=== PATIENT | male | born 1975 ===

== ENCOUNTER 2016-11-09 21:21 | Inpatient (IN) ==
--- NOTE | 2016-11-09 22:45 | Emergency Department Note ---
Héctor Marvin Brittany, am scribing for, and in the presence of, Chalo Torres MD 22:43. Melissa Marvin Charles R, MD, personally performed the services described in this documentation, ascribed by Abby Anaya in my presence, and it is both accurate and complete 245 . Arrival - Arrival Chief Complaint: Extremity Problem ED Nursing Triage Note: C/C stepped on a stick about 2 weeks ago. Has infected right foot. Pt transfered from [facility] ER for further treatment of gangrene right foot. Pt was given 1g Vancomycin, 4mg Morphine, 10 units Insulin at [facility] ER. Mode of Arrival: Stretcher Limitations: No Limitations Source: Patient, RN Notes Reviewed Time Seen by Provider: 11/09/16 22:19 - History of Present Illness HPI Narrative: Patient is a 41 y/o [place] male presenting to the ED by EMS from [facility] for further evaluation of Gangrenous Right Foot. Patient presented to [facility] ER initially for medical attention with nonhealing wound. Patient reports that about two weeks ago he stepped on a stick, resulting in the wound to his right foot that has now gotten gangrenous s/p attempt to care for this at home. Patient does complain of pain to the RLE. While at [facility] ER patient was given 1g Vancomycin, 4mg Morphine, and 10 units of Insulin. He has no other complaint/pain. Allergies/Adverse Reactions: Allergies Allergy/AdvReac Type Severity Reaction Status Date / Time No Known Allergies Allergy Unverified 11/09/16 21:40 Review of System - Review of System 12 point system: reviewed and no additional remarkable complaints except as stated - Review of System Constitutional: Absent: chills, fever Eyes: Absent: vision change Head/Ears/Nose/Throat: Absent: nasal drainage, sore throat Respiratory: Absent: respiratory distress Cardiovascular: Absent: chest pain, palpitations Gastrointestinal: Absent: abdominal pain, nausea, vomiting, diarrhea, constipation Genitourinary male: Absent: urgency, dysuria, frequency Musculoskeletal: Present: as per HPI, leg pain. Absent: arm pain, back pain, neck pain Skin: Present: as per HPI. Absent: rash Neurological: Absent: headache Psychiatric: Absent: anxiety, depression Hematological/Lymphatic: Absent: easy bleeding, easy bruising Medical,Surgical,& Family Hx - Medical History Cardio: History of: Hypertension Endocrine: History of: Diabetes Mellitus (NIDDM) (noncomplaint) - Surgical History Abdominal Surgeries: Surgical HX of: Abdominal Surgery - Social History Smoking Status: Never smoker Frequency of Alcohol Use: None Type of Drug Use: None Exam Vital Signs: Vital Signs Temperature 97.4 F L 11/09/16 21:23 Pulse Rate 110 H 11/09/16 21:23 Respiratory Rate 18 11/09/16 21:23 Blood Pressure 185/103 11/09/16 21:23 O2 Sat by Pulse Oximetry 100 11/09/16 21:23 - General General appearance: alert, in no apparent distress - Head Head exam: Present: atraumatic, normocephalic, normal inspection - Eye Eye exam: Present: normal appearance, PERRL, EOMI - ENT ENT exam: Present: normal exam, normal oropharynx - Neck Neck exam: Present: normal inspection, full ROM, trachea midline - Chest Chest inspection: Present: normal inspection, symmetric chest wall rise - Respiratory Respiratory exam: Present: normal lung sounds bilaterally. Absent: rales, rhonchi, wheezes - Cardiovascular Cardiovascular exam: Present: regular rate, normal rhythm, normal heart sounds. Absent: murmur, rubs, gallop - Abdominal Exam Abdominal exam: Present: soft, normal bowel sounds. Absent: distention, tenderness - Extremities Exam Extremities exam: Present: full ROM, tenderness (right foot). Absent: normal inspection (gangrenous, necrotic tissue with puffiness involving all but the great toe with gasseous changes) - Back Exam Back exam: Present: normal inspection - Neurological Exam Neurological exam: Present: alert, oriented X3, CN II-XII intact. Absent: motor sensory deficit - Psychiatric Psychiatric exam: Present: normal affect, normal mood - Skin Skin exam: Present: warm, dry. Absent: intact (gangrenous, necrotic tissue with puffiness involving all but the great toe with gasseous changes) Course - Consultations Consultation #1: Dr. Gimenez aware patient he will see him in consult for surgery for right foot diabetic ulcer gangrene Time: 22:40 Consultation #2: Hospitalist will admit patient Time: 22:44 Disposition Clinical Impression: Osteomyelitis of right foot, Diabetic ulcer of right foot, Gas gangrene right foot, Uncontrolled diabetes mellitus, Hyperglycemia, Medical non-compliance, Renal insufficiency Case discussed with: patient, patient's family Disposition: Still a Patient Condition: Guarded Time of Disposition: 22:45
[2016-11-09] MEDS ORDERED: PIPERACILLIN/TAZOBACTAM 3,375 MG in SODIUM CHLORIDE 0.9% 100 ML IV STA (22:46)
[2016-11-09] MEDS ORDERED: DEXTROSE 50% 25 GM/50 ML VIAL IV PRN (22:51)
[2016-11-09] MEDS ORDERED: GLUCAGON 1 MG VIAL IM PRN (22:51)
--- NOTE | 2016-11-09 22:59 | XRay Report ---
Referring Physician: Chalo Torres Exam: XR chest 1V portable Date: November 09, 2016 at 10:47 PM Reason: Preoperative respiratory evaluation Comparison: Chest x-ray portable October 28, 2012 Findings: The cardiac silhouette is normal in size for the portable technique. There are minimal bibasilar opacities which are favored to represent atelectasis. No pneumothorax or pleural effusion is identified. No acute osseous process is seen. Impression: Minimal bibasilar opacities are present and are favored to represent atelectasis. PROCEDURE INTERPRETED AT [facility] DEPARTMENT OF RADIOLOGY Final Report Signed by: Dr. Pebbles Fisher
[2016-11-09] MEDS ORDERED: MORPHINE 2 MG/1 ML SYRINGE IV STA (23:13)
--- NOTE | 2016-11-09 23:18 | Hospitalist History & Physical ---
Assessment and Plan (1) Gas gangrene Status: Acute Current Visit: Yes (2) Diabetic ulcer of right foot Status: Acute Current Visit: Yes (3) Hyperglycemia Status: Acute Current Visit: Yes (4) Medical non-compliance Status: Acute Current Visit: Yes (5) Osteomyelitis of right foot Status: Acute Current Visit: Yes (6) Renal insufficiency Status: Acute Current Visit: Yes (7) Uncontrolled diabetes mellitus Status: Acute Assessment and plan: Our plan for this patient will be admitting him to [facility] floor IV fluids and Vanco and Zosyn would be appropriate for gas gangrene. Patient will need debridement and possible amputation. Surgery will be consulted. We will also consult diabetic education to try to enforce the need for better glucose control. Gave him n.p.o. past midnight and sliding scale as needed Current Visit: Yes History of Present Illness Chief complaint: Foot wound History of present illness: Mr. Shirley is a 41 year old male with past medical history of diabetes and hypertension who reportedly stepped on a stick approximately one half weeks ago. Patient was trying to take care of at home but would not get any better. He started noticing that it was smelling. He went to [facility] today. He had a CT scan performed at the [facility]. The impression was soft tissue swelling of the foot with a large amount of air in the soft tissues. Questionable acute osteomyelitis in the fifth medial fourth metatarsal head versus poor visualization due to overlying air. Consider MRI. We accepted the patient in transfer from the [facility] I was consulted to admit the patient through the emergency room. Allergies Allergy/AdvReac Type Severity Reaction Status Date / Time No Known Allergies Allergy Unverified 11/09/16 21:40 Medical,Surgical,& Family Hx - Medical History Cardio: History of: Hypertension Endocrine: History of: Diabetes Mellitus (NIDDM) (noncomplaint) - Surgical History Abdominal Surgeries: Surgical HX of: Abdominal Surgery - Social History Smoking Status: Never smoker Frequency of Alcohol Use: None Type of Drug Use: None 12 point system: reviewed and no additional remarkable complaints except as stated Exam - Constitutional Vitals: Period Temp Pulse Resp BP Sys/Valdivia Pulse Ox Last 24 Hr 97.4 F-97.4 F 110-110 18-18 185-185/103-103 100 - General General appearance: alert, in no apparent distress - Head Head exam: Present: atraumatic, normocephalic, normal inspection - Eye Eye exam: Present: normal appearance, PERRL, EOMI - ENT ENT exam: Present: normal exam, normal oropharynx - Neck Neck exam: Present: normal inspection, full ROM, trachea midline - Chest Chest inspection: Present: normal inspection, symmetric chest wall rise - Respiratory Respiratory exam: Present: normal lung sounds bilaterally - Cardiovascular Cardiovascular exam: Present: regular rate, normal rhythm, normal heart sounds. - Abdominal Exam Abdominal exam: Present: soft, normal bowel sounds. - Extremities Exam Extremities exam: Present: Gangrenous necrotic tissue involving a large amount of the sole of his right foot. - Back Exam Back exam: Present: normal inspection - Neurological Exam Neurological exam: Present: alert, oriented X3, CN II-XII intact. - Psychiatric Psychiatric exam: Present: normal affect, normal mood - Skin Skin exam: Present: warm, dry. Foot infection as described above Results - Labs Labs: Labs from outside facility displayed white count 10.3 hemoglobin 9.6 and 30.4 platelets 646 glucose 507 BUN 14 creatinine 1.4 sodium 127 potassium 4.0 chloride 92 bicarb 26.5 calcium 7.9 acetone screen negative lactic acid 2.5
[2016-11-09] MEDS ORDERED: PIPERACILLIN/TAZOBACTAM 3,375 MG VIAL IV ONE (23:26)
[2016-11-09] MEDS: SODIUM CHLORIDE 0.9% 1,000 ML IV SCH (23:33)
[2016-11-09 23:42] LABS: Basophils % 0.3 % (0.0-0.8); Eosinophils # 0.2 10*3/uL (0.0-0.87); Eosinophils % 1.3 % (0.00-10.9); Hematocrit 24.8 VOL% (42.0-52.0); Hemoglobin 8.1 GM/DL (14.0-18.0); Immature Granulocytes % 0.4 %; Immature Granulocytes Absolute 0.06 #; Lymphocytes % 13.7 % (21.2-54.2); Mean Corpuscular HGB Conc 32.7 GM/DL (32-36); Mean Corpuscular Hemoglobin 27 PG (27-34); Mean Corpuscular Volume 83.8 FL (87-102); Mean Platelet Volume 8.4 FL (9.6-12.0); Monocytes # 0.8 10*3/uL (0.11-0.8); Monocytes % 5.3 % (1.7-12.7); Neutrophils # 11.6 10*3/uL (1.4-7.4); Platelet Count 530 T/CUMM (130-400); Red Blood Count 2.96 MC/CUMM (3.8-5.5); Red Cell Distribution Width 12.9 % (9.3-17.3); White Blood Count 14.7 T/CUMM (4-12)
[2016-11-10 00:03] LABS: Alanine Aminotransferase 12 U/L (16-61); Albumin 1.4 G/DL (3.4-5.0); Alkaline Phosphatase 146 U/L (45-117); Aspartate Amino Transferase 10 U/L (0-37); Bilirubin,Total < 0.39 MG/DL (0.2-1.0); Blood Urea Nitrogen 11 MG/DL (7-18); Calcium 7.5 MG/DL (8.5-10.1); Glucose 291 MG/DL (74-106); Magnesium 1.5 MG/DL (1.8-2.4); Osmolality,Calculated 271.7 MOS/KG (273-304); Potassium 3.9 MMOL/L (3.5-5.1); Sodium 131 MMOL/L (136-145); Total Protein 6.8 G/DL (6.4-8.3)
[2016-11-10] MEDS ORDERED: VANCOMYCIN INJ 1,000 MG in SODIUM CHLORIDE 0.9% 250 ML IV ONE (01:00)
[2016-11-10] MEDS ORDERED: MAGNESIUM SULF RIDER 2 GM in PREMIX 1 EACH IV ONE (02:34)
[2016-11-10] MEDS: VANCOMYCIN INJ 1,500 MG in SODIUM CHLORIDE 0.9% 500 ML IV SCH ×3 (03:50→20:52)
[2016-11-10] MEDS: MORPHINE 2 MG/1 ML SYRINGE IV PRN ×3 (04:07→20:45)
[2016-11-10] MEDS: INSULIN REGULAR 100 UNIT/ML SUBCUT SCH ×5 (04:56→20:53)
[2016-11-10] MEDS ORDERED: INSULIN REGULAR 100 UNIT/ML SUBCUT ONE (05:01)
[2016-11-10 05:56] LABS: Basophils # 0.1 10*3/uL (0.0-0.2); Basophils % 0.4 % (0.0-0.8); Eosinophils # 0.6 10*3/uL (0.0-0.87); Eosinophils % 4.4 % (0.00-10.9); Hematocrit 23.4 VOL% (42.0-52.0); Hemoglobin 7.6 GM/DL (14.0-18.0); Immature Granulocytes % 0.5 %; Immature Granulocytes Absolute 0.07 #; Lymphocytes % 15.2 % (21.2-54.2); Mean Corpuscular HGB Conc 32.5 GM/DL (32-36); Mean Corpuscular Hemoglobin 27 PG (27-34); Mean Corpuscular Volume 84.5 FL (87-102); Mean Platelet Volume 8.4 FL (9.6-12.0); Monocytes # 0.7 10*3/uL (0.11-0.8); Monocytes % 5.3 % (1.7-12.7); Neutrophils # 9.6 10*3/uL (1.4-7.4); Neutrophils % 74.2 % (38.7-73.9); Platelet Count 526 T/CUMM (130-400); Red Blood Count 2.77 MC/CUMM (3.8-5.5)
[2016-11-10 06:36] LABS: Calcium 7.4 MG/DL (8.5-10.1); Osmolality,Calculated 271.5 MOS/KG (273-304)
--- NOTE | 2016-11-10 07:20 | General Surgery Consult Note ---
Assessment and Plan (1) Gas gangrene Status: Acute Assessment and plan: This patient appears to have a fairly significant infection of his right foot. He has gangrene of his third through fifth toes and this is the cause of the infection. I have recommended amputation of toes 3 through 5 on the right foot with the possibility of transmetatarsal amputation discussed with the patient. We will go ahead and do this today. The patient would like to proceed. Current Visit: Yes History of Present Illness Chief complaint: Right foot pain History of present illness: Mr. Shirley is a 41 year old male admitted to the hospital on transfer from [facility] for wet gangrene of the right third through fifth toes. The patient says he has been dealing with this for many months. His lactic acid at [place] was 2.5 but it was 1 here white blood cell count is mildly elevated. Creatinine is actually normal blood glucoses are extremely elevated in the 500 range when he got here. This is improved overnight. The patient is ambulatory. Allergies Allergy/AdvReac Type Severity Reaction Status Date / Time No Known Allergies Allergy Unverified 11/09/16 21:40 Medical,Surgical,& Family Hx - Medical History Cardio: History of: Hypertension Endocrine: History of: Diabetes Mellitus (NIDDM) (noncomplaint) - Surgical History HEENT Surgeries: Surgical HX of: Tonsilectomy & Adenoidectomy (tonsilectomy) Abdominal Surgeries: Surgical HX of: Abdominal Surgery - Family History Family History: Reports;: Family Diabetes (father) - Social History Smoking Status: Never smoker Frequency of Alcohol Use: None Type of Drug Use: None - Constitutional Constitutional: Present: as per HPI - EENT Nose, mouth and throat: Present: as per HPI - Cardiovascular Cardiovascular: Present: as per HPI - Respiratory Respiratory: Present: as per HPI - Gastrointestinal Gastrointestinal: Present: as per HPI - Genitourinary Genitourinary: Present: as per HPI - Musculoskeletal Musculoskeletal: Present: as per HPI - Neurological Neurological: Present: as per HPI - Endocrine Endocrine: Present: as per HPI Hematologic/Lymphatic: Present: as per HPI Exam - Constitutional Vitals: Period Temp Pulse Resp BP Sys/Valdivia Pulse Ox Last 24 Hr 98 F-98.3 F 84-95 16-18 106-126/53-83 95-97 General appearance: no acute distress, over weight - Head Head exam: Present: normal inspection, normocephalic - Eye Eye exam: Present: EOMI. Absent: scleral icterus Pupils: Present: KIMBERLI - ENT ENT exam: Present: normal exam Mouth exam: Present: normal external inspection, normal voice - Neck Neck exam: Present: normal inspection, trachea midline - Respiratory Respiratory exam: Present: clear to auscultation bilaterally. Absent: accessory muscle use, chest wall tenderness - Cardiovascular Cardiovascular exam: Present: RRR. Absent: systolic murmur, tachycardia - GI/Abdominal GI/Abdominal exam: Present: normal bowel sounds, soft. Absent: tenderness, rebound - Extremities Exam Extremities exam: Present: other (There is wet gangrene of the third through fifth toes of the right foot. There is some erythema extending onto the forefoot. There is no skin blistering. There is foul odor to the foot.) - Neurological Exam Neurological exam: Present: alert, oriented X3 Speech: Present: normal - Skin Skin exam: Present: normal color, warm Results - Labs CBC & BMP: 11/10/16 05:17 11/10/16 05:17 - Diagnostic Findings Procedure: Chest x-ray: image reviewed by me, report reviewed by me, X-ray: report reviewed by me (Right foot x-ray with subcutaneous emphysema.)
[2016-11-10] MEDS ORDERED: LISINOPRIL/HCTZ 20-12.5 MG TABLET PO SCH (09:00)
[2016-11-10] MEDS: PANTOPRAZOLE 40 MG TABLET PO SCH (09:38)
[2016-11-10] MEDS: PIPERACILLIN/TAZOBACTAM 3,375 MG in SODIUM CHLORIDE 0.9% 100 ML IV SCH ×2 (09:39→17:07)
[2016-11-10] MEDS: SODIUM CHLORIDE 0.9% 1,000 ML IV SCH ×3 (09:39→22:01)
[2016-11-10] MEDS ORDERED: ROPIVACAINE 0.5% 30 ML VIAL ONE (11:52)
[2016-11-10] MEDS ORDERED: ONDANSETRON 4 MG/2 ML VIAL ONE (11:55)
--- NOTE | 2016-11-10 11:55 | EKG Report ---
Stationary ECG Study [facility] Test Date: 11/10/2016 11:55:35 AM Pat Name: KIRILL LEGER Department: Room: 328 Gender: M Seo Executive: CLAUDIA : 1975 Requested by: Kee Vela Order Number: [id number] Reading MD: TYRELL KLEIN Intervals [place] Rate: 90 P: 50 WI: 96 QRS: 29 QRSD: 93 T: -12 QT: 372 QTc: 420 Interpretive Statements SINUS RHYTHM WITH SHORT WI INTERVAL MODERATE VOLTAGE CRITERIA FOR LVH, CONSIDER NORMAL VARIANT INFERIOR MYOCARDIAL INFARCTION, OF INDETERMINATE AGE Electronically Signed On 11-16-16 10:44:35 CDT by TYRELL KLEIN [email or web address]
--- NOTE | 2016-11-10 12:40 | Operative Note ---
Date of procedure: 11/10/16 Pre-op diagnosis: Wet gangrene right foot Post-op diagnosis: same Procedure: Preoperative diagnosis Wet gangrene right foot Postoperative diagnosis Same Procedures performed Ray amputation of right second through fifth toes Complications None apparent Specimen Gangrenous tissue with no pus Findings Wet gangrene was present but there is no purulent fluid to culture. Healthy bleeding tissue was achieved on the resection of all necrotic tissue. Blood loss 20 mL Anesthesia Monitored with local and regional ankle block Indications Wet gangrene right foot Description of procedure The patient was taken to the operating room and transferred to the operating table in the supine position. Pressure points were padded and SCDs placed the left lower extremity. Monitored anesthesia was administered. The right foot was prepped with water-based chlorhexidine and draped sterilely. Timeout was called. The wet gangrene extended through the second toe as well as the third through fifth toes and an incision was made around the area of gangrene and all the gangrene was removed with sharp dissection. Bone cutters were used to transect the bone and it required transmetatarsal ray amputations of second through fifth toes. We did get back to healthy bleeding tissue. All the gangrenous tissue was removed and sent to the lab. There is no pus for culture. The wound was irrigated and packed with Dakin's wet-to-dry dressing. The patient was awakened from anesthesia and transferred to recovery. Postoperative plan Continue wound care and antibiotics Anesthesia: MAC Surgeon / Physician: Dean Gimenez Estimated blood loss: other (20 mL) Specimens: other (right foot gangrene) Condition: stable Disposition: PACU Results - Labs CBC & BMP: 11/10/16 05:17 11/10/16 05:17 Discharge Plan - Discharge Medications No Action Insulin Aspart [NovoLOG FlexPen] 10 unit SUBCUT BID W/MEALS Aspirin [Aspirin EC] 81 mg PO DAILY Lisinopril 20 mg PO DAILY glyBURIDE/METFORMIN 5-500 [Glucovance 5-500] 1 tablet PO BID W/MEALS - Follow Up or Referral - Forms/Instructions
[2016-11-10] MEDS ORDERED: MIDAZOLAM 2 MG/2 ML VIAL ONE (13:07)
[2016-11-10] MEDS ORDERED: fentaNYL 100 MCG/2 ML VIAL ONE (13:07)
[2016-11-10] MEDS: ONDANSETRON 4 MG/2 ML VIAL IV PRN (13:44)
--- NOTE | 2016-11-10 14:23 | Hospitalist Progress Note ---
Hospitalist: Subjective Interval history: Pt reports pain is controlled. C/O hunger. No cp or SOB. No fever. Last Bm unknown. Exam - Constitutional Vitals: Period Temp Pulse Resp BP Sys/Valdivia Pulse Ox Last 24 Hr 98 F-99.7 F 80-104 16-24 96-151/53-86 92-100 Exam: A and O x 3 RRR no M CTAB nonlabored Soft NT ,ND, +BS Warm right foot wrapped no cyanosis capillary refill around 2 sec. No c/c/e. DUMONT Results - Labs CBC & BMP: 11/10/16 05:17 11/10/16 05:17 - Impressions (1) Gas gangrene and nonhealing DM ulcer of right foot with osteomyelitis s/p Ray amputation of right 2nd-5th toes 11/10 Status: Acute Current Visit: Yes - Cont IV antibiotics (Vanc/ Zosyn). F/U wound and blood cultures. Cont local wound care. Surgery following (2) Uncontrolled DM2 with hyperglycemia Status: Acute Current Visit: Yes - DM education - Insulin. Accuchecks ac, hs. Check HgbA1c (3) Medical non-compliance Status: Acute Current Visit: Yes (4) Acute renal failure with hyponatremia likely due to dehydration- resolved Status: Acute Current Visit: Yes s/p IVF. (5) Hypomagnesemia - replaced IV. Recheck in am DVT prophylaxis D/W pt, family and nurse and all questions answered.
--- NOTE | 2016-11-10 14:41 | Anesthesia Post-Op ---
Anesthesia Post OP - Post Ansesthetic Evaluation Patient seen in post op: Yes Resp: within normal limits CV: within normal limits Mental: within normal limits Temp: within normal limits [id number]: within normal limits Nausea and Vomiting: within normal limits Pain: within normal limits
[2016-11-10] MEDS ORDERED: KETAMINE 500 MG/10 ML VIAL ONE (14:54)
--- NOTE | 2016-11-10 15:10 | Event Note ---
General Surgery Progress Note Chief complaint This patient is a 41-year-old man with diabetes admitted with wet gangrene of his right foot treated with ray amputation of right second through fifth toes on 11/10/2016 Interval history The patient is doing well. He is hungry but has no other complaints. Physical exam Afebrile with normal vital signs Right foot dressing is clean with no bleeding Labs None new Imaging None Assessment and plan Continue antibiotics and diet as tolerated Continue pain control I will change the dressing tomorrow.
[2016-11-11] MEDS: PIPERACILLIN/TAZOBACTAM 3,375 MG in SODIUM CHLORIDE 0.9% 100 ML IV SCH ×3 (00:58→18:12)
[2016-11-11] MEDS: MORPHINE 2 MG/1 ML SYRINGE IV PRN ×2 (04:08→08:25)
[2016-11-11] MEDS: VANCOMYCIN INJ 1,500 MG in SODIUM CHLORIDE 0.9% 500 ML IV SCH ×3 (05:24→20:39)
[2016-11-11 06:31] LABS: Basophils % 0.3 % (0.0-0.8); Eosinophils # 0.7 10*3/uL (0.0-0.87); Eosinophils % 5.7 % (0.00-10.9); Immature Granulocytes % 0.6 %; Immature Granulocytes Absolute 0.08 #; Lymphocytes # 1.9 10*3/uL (1.4-4.0); Lymphocytes % 14.6 % (21.2-54.2); Mean Corpuscular HGB Conc 33.3 GM/DL (32-36); Mean Corpuscular Hemoglobin 28 PG (27-34); Mean Corpuscular Volume 84.3 FL (87-102); Mean Platelet Volume 8.3 FL (9.6-12.0); Monocytes # 0.7 10*3/uL (0.11-0.8); Monocytes % 5.1 % (1.7-12.7); Neutrophils # 9.5 10*3/uL (1.4-7.4); Neutrophils % 73.7 % (38.7-73.9); Platelet Count 479 T/CUMM (130-400); Red Blood Count 2.49 MC/CUMM (3.8-5.5); Red Cell Distribution Width 13.2 % (9.3-17.3); White Blood Count 12.8 T/CUMM (4-12)
[2016-11-11 07:06] LABS: Calcium 7.1 MG/DL (8.5-10.1); Magnesium 1.6 MG/DL (1.8-2.4); Osmolality,Calculated 268.8 MOS/KG (273-304); Potassium 4.2 MMOL/L (3.5-5.1)
--- NOTE | 2016-11-11 08:16 | Event Note ---
General Surgery Progress Note Chief complaint This patient is a 41-year-old man with diabetes admitted with wet gangrene of his right foot treated with ray amputation of right second through fifth toes on 11/10/2016 Interval history The patient is doing well. He is hungry but has no other complaints. He is having some pain Physical exam Afebrile with normal vital signs Right foot wound is clean with no active bleeding but no significant further necrotic tissue Labs None new Imaging None Assessment and plan Continue antibiotics and diet as tolerated Continue pain control Continue wound care The patient will be a good candidate for [facility]. We will look into this.
[2016-11-11] MEDS: INSULIN REGULAR 100 UNIT/ML SUBCUT SCH ×4 (08:47→20:49)
[2016-11-11] MEDS: PANTOPRAZOLE 40 MG TABLET PO SCH (08:50)
[2016-11-11] MEDS: LISINOPRIL 20 MG TABLET PO SCH (08:56)
[2016-11-11] MEDS ORDERED: MAGNESIUM SULF RIDER 2 GM in PREMIX 1 EACH IV ONE (10:28)
--- NOTE | 2016-11-11 10:34 | Hospitalist Progress Note ---
Hospitalist: Subjective Interval history: C/o severe pain in foot. No cp or SOB. No fever. BS elevated. Ate well yesterday. Exam - Constitutional Vitals: Period Temp Pulse Resp BP Sys/Valdivia Pulse Ox Last 24 Hr 97.7 F-99.7 F 78-100 16-22 96-155/42-83 95-100 Exam: A and O x 3, appears to be in distress due to pain trying to eat breakfast RRR no M CTAB nonlabored Soft NT ,ND, +BS Warm right foot wound is open without drainage. granulation tissue on plantar surface noted. no cyanosis capillary refill around 2 sec. No c/c/e. DUMONT Results - Labs CBC & BMP: 11/11/16 06:22 11/11/16 06:22 Labs: wound gnr x 2 and gpc : 1 nonfermenting and 1 fermenting; ? proteus; ?gram positive - Impressions (1) Gas gangrene and nonhealing DM ulcer of right foot with osteomyelitis s/p Ray amputation of right 2nd-5th toes 11/10 Status: Acute Current Visit: Yes - Cont IV antibiotics (Vanc/ Zosyn). F/U wound and blood cultures. Cont local wound care. Surgery following (2) Uncontrolled DM2 with hyperglycemia (HgbA1c 13.6) Status: Acute Current Visit: Yes - DM education - Schedule Insulin Novolin 70/30 20U BID. Accuchecks ac, hs. (3) Acute expected blood loss anemia Status: Acute Current Visit: Yes -transfuse 2 units of PRBCs. Recheck H and H in am (4) Acute renal failure likely due to dehydration- improved. Status: Acute Current Visit: Yes s/p IVF. (5) Hypomagnesemia - replace again IV today. DVT prophylaxis D/W pt, family and nurse and charge nurse and micro dept. All questions answered.
[2016-11-11] MEDS: SODIUM CHLORIDE 0.9% 1,000 ML IV SCH (11:20)
[2016-11-11] MEDS ORDERED: SODIUM CHLORIDE 0.9% 250 ML IV PRN (12:04)
[2016-11-11] MEDS: INSULIN ASPART PROTAMINE/ASPART 70/30 100 UNIT/ML SUBCUT SCH ×2 (12:29→18:11)
[2016-11-11] MEDS: ONDANSETRON 4 MG/2 ML VIAL IV PRN (12:31)
[2016-11-12] MEDS: PIPERACILLIN/TAZOBACTAM 3,375 MG in SODIUM CHLORIDE 0.9% 100 ML IV SCH ×4 (03:13→23:55)
[2016-11-12] MEDS: SODIUM CHLORIDE 0.9% 1,000 ML IV SCH (07:04)
--- NOTE | 2016-11-12 07:15 | Event Note ---
General Surgery Progress Note Chief complaint This patient is a 41-year-old man with diabetes admitted with wet gangrene of his right foot treated with ray amputation of right second through fifth toes on 11/10/2016 Interval history The patient is doing well. Physical exam Afebrile with normal vital signs Right foot wound is clean. There is a small amount of sloughing tissue on the plantar aspect of the foot. Labs None new Imaging None Assessment and plan Continue antibiotics and diet as tolerated Continue pain control Continue wound care The patient will be a good candidate for [facility]. Hopefully he can go there. His wound care requirements are too intense for the [facility] in my opinion.
[2016-11-12] MEDS: MORPHINE 2 MG/1 ML SYRINGE IV PRN ×3 (08:12→19:10)
[2016-11-12] MEDS: INSULIN ASPART PROTAMINE/ASPART 70/30 100 UNIT/ML SUBCUT SCH ×2 (08:19→18:07)
[2016-11-12] MEDS: INSULIN REGULAR 100 UNIT/ML SUBCUT SCH ×4 (08:20→21:20)
[2016-11-12 08:21] LABS: Basophils % 0.2 % (0.0-0.8); Eosinophils # 0.7 10*3/uL (0.0-0.87); Eosinophils % 5.4 % (0.00-10.9); Hematocrit 29.2 VOL% (42.0-52.0); Immature Granulocytes % 0.7 %; Immature Granulocytes Absolute 0.09 #; Lymphocytes # 1.6 10*3/uL (1.4-4.0); Lymphocytes % 12.5 % (21.2-54.2); Mean Corpuscular HGB Conc 32.5 GM/DL (32-36); Mean Corpuscular Hemoglobin 28 PG (27-34); Mean Corpuscular Volume 84.4 FL (87-102); Monocytes # 0.7 10*3/uL (0.11-0.8); Monocytes % 5.6 % (1.7-12.7); Neutrophils # 9.7 10*3/uL (1.4-7.4); Neutrophils % 75.6 % (38.7-73.9); Platelet Count 502 T/CUMM (130-400); White Blood Count 12.9 T/CUMM (4-12)
[2016-11-12 08:27] LABS: Red Blood Count 3.46 MC/CUMM (3.8-5.5)
[2016-11-12 08:28] LABS: Hemoglobin 9.5 GM/DL (14.0-18.0)
[2016-11-12] MEDS: PANTOPRAZOLE 40 MG TABLET PO SCH (08:43)
[2016-11-12] MEDS: LISINOPRIL 20 MG TABLET PO SCH (08:43)
[2016-11-12 08:50] LABS: Albumin 1.4 G/DL (3.4-5.0); Calcium 7.7 MG/DL (8.5-10.1); Magnesium 2.2 MG/DL (1.8-2.4); Osmolality,Calculated 274.7 MOS/KG (273-304); Phosphorous 3.8 MG/DL (2.5-4.9); Potassium 4.3 MMOL/L (3.5-5.1)
[2016-11-12] MEDS ORDERED: VANCOMYCIN INJ 1,500 MG in SODIUM CHLORIDE 0.9% 500 ML IV PRN (09:00)
[2016-11-12] MEDS ORDERED: BISACODYL 5 MG TABLET PO ONE (09:59)
--- NOTE | 2016-11-12 11:42 | Hospitalist Progress Note ---
Hospitalist: Subjective Interval history: Patient reports his pain is still not controlled. He is tolerating oral intake. No bowel movements recorded. No chest pain or shortness of breath. No fever Exam - Constitutional Vitals: Period Temp Pulse Resp BP Sys/Valdivia Pulse Ox Last 24 Hr 97.4 F-99.7 F 77-100 16-20 94-150/48-83 93-95 Exam: A and O x 2, appears to be in distress due to pain. RRR no M CTAB nonlabored Soft NT ,ND, +BS Warm right foot wrapped with dressings in place an Darrel bandage. no cyanosis capillary refill around 2 sec. No c/c/e. DUMONT Results - Labs CBC & BMP: 11/12/16 08:00 11/12/16 08:00 - Impressions (1) Gas gangrene and nonhealing DM ulcer of right foot with osteomyelitis s/p Ray amputation of right 2nd-5th toes 11/10 Status: Acute Current Visit: Yes - Cont IV antibiotics (Vanc/ Zosyn). Hold Vanc until Vanc level returns. F/U wound cultures. Cont local wound care. Surgery following (2) Uncontrolled DM2 with hyperglycemia (HgbA1c 13.6) Status: Acute Current Visit: Yes - DM education - BS controlled. Cont Insulin Novolin 70/30 20U BID. Accuchecks ac, hs. (3) Acute expected blood loss anemia Status: Acute Current Visit: Yes -transfuse 2 units of PRBCs. Recheck H and H in am (4) Acute renal failure Status: Acute Current Visit: Yes s/p IVF. Recheck renal function panel now. Check a random Vanco level now. Discussed with pharmacy. (5) Hypomagnesemia - replace again IV today. DVT prophylaxis Pt has been accepted to [facility] but cultures are still pending and creatinine has jumped up. ? lab error. Repeat RFP now and check random vanc level now. D/W pharmacy.
[2016-11-12] MEDS ORDERED: VANCOMYCIN INJ 1,500 MG in SODIUM CHLORIDE 0.9% 500 ML IV ONE (12:00)
[2016-11-12 12:54] LABS: Albumin 1.3 G/DL (3.4-5.0); Calcium 7.5 MG/DL (8.5-10.1); Phosphorous 3.5 MG/DL (2.5-4.9); Potassium 4.3 MMOL/L (3.5-5.1)
[2016-11-12] MEDS ORDERED: SODIUM CHLORIDE 0.9% 1,000 ML IV SCH (16:30)
--- NOTE | 2016-11-12 17:49 | Ultrasound Report ---
Referring Physician: Philly Aleman MD Exam: US renal Bilateral Date: November 12, 2016 Reason: Elevated creatinine Comparison: None Technique: Grayscale ultrasound images of both kidneys were obtained. Ultrasound images were captured and stored. Findings: The right kidney measures 10.5 x 5.4 x 4.9 cm, and the left kidney measures 10.2 x 6.1 x 6.1 cm. No hydronephrosis or suspicious renal lesion is identified. The renal parenchyma echogenicity is unremarkable as visualized. Impression: No acute renal process is identified. PROCEDURE INTERPRETED AT [facility] DEPARTMENT OF RADIOLOGY Final Report Signed by: Dr. Pebbles Fisher
[2016-11-13 05:29] LABS: Albumin 1.3 G/DL (3.4-5.0); Calcium 7.1 MG/DL (8.5-10.1); Osmolality,Calculated 275.8 MOS/KG (273-304); Potassium 4.5 MMOL/L (3.5-5.1)
[2016-11-13 05:45] LABS: Alanine Aminotransferase < 6 U/L (16-61); Albumin 1.3 G/DL (3.4-5.0); Alkaline Phosphatase 150 U/L (45-117); Aspartate Amino Transferase 9 U/L (0-37); Bilirubin,Indirect 0.5 MG/DL (0.0-1.0); Total Protein 5.8 G/DL (6.4-8.3)
[2016-11-13] MEDS: SODIUM CHLORIDE 0.9% 1,000 ML IV SCH ×3 (06:05→17:33)
--- NOTE | 2016-11-13 06:39 | Event Note ---
General Surgery Progress Note Chief complaint This patient is a 41-year-old man with diabetes admitted with wet gangrene of his right foot treated with ray amputation of right second through fifth toes on 11/10/2016 Interval history The patient is doing well. Physical exam Afebrile with normal vital signs Right foot wound is clean. There is a small amount of sloughing tissue on the plantar aspect of the foot. It is improved from yesterday Labs None new Imaging None Assessment and plan Continue antibiotics and diet as tolerated Continue pain control Continue wound care Transfer to LTAC as soon as one is available. The wound is not ready for a wound VAC yet. Continue wet-to-dry dressing changes.
--- NOTE | 2016-11-13 07:50 | Hospitalist Progress Note ---
Hospitalist: Subjective Interval history: Patient reports his pain medication does not last long enough. No fever or chills. He is tolerating oral intake. He has had a bowel movement. No diarrhea. He says he is voiding and it is the color of Mountain Dew. Exam - Constitutional Vitals: Period Temp Pulse Resp BP Sys/Valdivia Pulse Ox Last 24 Hr 97.9 F-99.7 F 74-91 16-20 109-137/58-69 95-96 Exam: A and O x 2, appears to be in distress due to pain. RRR no M CTAB nonlabored Soft NT ,ND, +BS Warm right foot wrapped with dressings in place with an Darrel bandage. no cyanosis capillary refill around 2 sec. No c/c/e. 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 Hold Vanc due to elevated creatinine levels. F/U wound cultures. Cont local wound care. Surgery following (2) Uncontrolled DM2 with hyperglycemia (HgbA1c 13.6) Status: Acute Current Visit: Yes - DM education - BS controlled. Cont Insulin Novolin 70/30 20U BID. Accuchecks ac, hs. (3) Acute expected blood loss anemia Status: Acute Current Visit: Yes -transfuse 2 units of PRBCs. Recheck H and H in am (4) Acute renal failure likely ATN/AIN Status: Acute Current Visit: Yes - Vanc dc'd. Holding ACEi. Renal Ultrasound normal. Consult Renal. Increase IVF. Monitor I and O's. Serial labs. - Renally dose medication - Avoid nephrotoxic agents. (5) Hypomagnesemia - replaced. (6) Severe protein calorie malnutrition - nutrition consult and supplementation DVT prophylaxis Pt has been accepted to [facility] but cultures are still pending and creatinine has jumped up. It appears it may have plateaued. On IV fluids and repeat RFP. Awaiting nephrology input.
[2016-11-13] MEDS: INSULIN REGULAR 100 UNIT/ML SUBCUT SCH ×4 (08:44→21:51)
[2016-11-13] MEDS: PANTOPRAZOLE 40 MG TABLET PO SCH (08:44)
[2016-11-13] MEDS: INSULIN ASPART PROTAMINE/ASPART 70/30 100 UNIT/ML SUBCUT SCH ×2 (08:45→16:57)
[2016-11-13] MEDS: PIPERACILLIN/TAZOBACTAM 3,375 MG in SODIUM CHLORIDE 0.9% 100 ML IV SCH ×2 (08:46→16:58)
[2016-11-13] MEDS: MORPHINE 2 MG/1 ML SYRINGE IV PRN (09:37)
--- NOTE | 2016-11-13 18:28 | Nephrology Consult Note ---
History of Present Illness Chief complaint: Acute renal failure History of present illness: Mr. Shirley is a 41 year old male gentleman with a history of hypertension diabetes who is now status post amputation of the third through the fifth toe on the right. Patient had follow-up labs today that showed evidence of acute renal failure with creatinine 2.4. Nephrology is been consulted for renal issues. There is no history of hypotensive episodes in the reports. Patient has been on lisinopril in the past. There is no history of any other recent contrast studies for this patient. At present he is has good urine output voices no complaints of shortness of breath or chest pain. Renal ultrasound done today shows no evidence of hydronephrosis or obstruction. At this time recommend continue to encourage fluids by mouth. Avoid nephrotoxic agents. Daily BMP. Home Medications Medication Instructions Recorded Confirmed Type Aspirin [Aspirin EC] 81 mg PO DAILY 11/10/16 11/10/16 History Insulin Aspart [NovoLOG FlexPen] 10 unit SUBCUT BID W/MEALS 11/10/16 11/10/16 History Lisinopril 20 mg PO DAILY 11/10/16 11/10/16 History glyBURIDE/METFORMIN 5-500 1 tablet PO BID W/MEALS 11/10/16 11/10/16 History [Glucovance 5-500] Allergies Allergy/AdvReac Type Severity Reaction Status Date / Time No Known Allergies Allergy Unverified 11/09/16 21:40 Medical,Surgical,& Family Hx - Medical History Cardio: History of: Hypertension Neurology: No history of: Seizures Endocrine: History of: Diabetes Mellitus (NIDDM) (noncomplaint) - Surgical History HEENT Surgeries: Surgical HX of: Tonsilectomy & Adenoidectomy (tonsilectomy) Abdominal Surgeries: Surgical HX of: Abdominal Surgery - Family History Family History: Reports;: Family Diabetes (father) - Social History Smoking Status: Never smoker Frequency of Alcohol Use: None Type of Drug Use: None Review of Systems Constitutional: fatigue, lethargy Cardiovascular: no chest pain at rest, no chest pain with activity Respiratory: no cough Gastrointestinal: no abdominal pain Genitourinary: no difficulty urinating, no dysuria, no flank pain Exam - Vital Signs Vital signs: Period Temp Pulse Resp BP Sys/Valdivia Pulse Ox Last 24 Hr 97.9 F-99.1 F 74-92 16-20 109-137/59-79 95-97 - General Appearance General appearance: well-developed, well-nourished EENT: ATNC Neck: supple Respiratory: clear Cardiology: no edema, regular rate, regular rhythm Gastrointestinal: normoactive bowel sounds, no tenderness Neurologic: alert and oriented x3, CN 3-12 intact Musculoskeletal: deformities (Right foot is bandaged) Psychiatric: mood/affect appropriate, cooperative Results - Labs CBC & BMP: 11/12/16 08:00 11/13/16 03:13 Assessment and Plan (1) Acute renal failure Status: Acute Assessment and plan: Etiology is more likely due to ATN. At present lisinopril has been discontinued. Follow strict I's and O's. Daily BMP. Avoid nephrotoxic agents. We will continue to follow. Current Visit: Yes (2) Osteomyelitis of right foot Status: Acute Current Visit: Yes (3) Diabetic ulcer of right foot Status: Acute Current Visit: Yes Qualifiers: Diabetic foot ulcer location: toe Diabetes mellitus type: type 2 (4) Medical non-compliance Status: Chronic Current Visit: Yes (5) Renal insufficiency Status: Acute Current Visit: Yes Specialty Discharge - Follow Up or Referrals
[2016-11-14] MEDS: PIPERACILLIN/TAZOBACTAM 3,375 MG in SODIUM CHLORIDE 0.9% 100 ML IV SCH ×4 (00:39→23:38)
[2016-11-14 06:58] LABS: Basophils % 0.4 % (0.0-0.8); Eosinophils # 0.9 10*3/uL (0.0-0.87); Eosinophils % 8.5 % (0.00-10.9); Hematocrit 27.3 VOL% (42.0-52.0); Hemoglobin 8.9 GM/DL (14.0-18.0); Immature Granulocytes % 0.6 %; Immature Granulocytes Absolute 0.06 #; Lymphocytes # 1.3 10*3/uL (1.4-4.0); Lymphocytes % 12.1 % (21.2-54.2); Mean Corpuscular HGB Conc 32.6 GM/DL (32-36); Mean Corpuscular Hemoglobin 27 PG (27-34); Mean Corpuscular Volume 83.5 FL (87-102); Mean Platelet Volume 8.1 FL (9.6-12.0); Monocytes # 0.5 10*3/uL (0.11-0.8); Neutrophils % 73.4 % (38.7-73.9); Platelet Count 448 T/CUMM (130-400); Red Blood Count 3.27 MC/CUMM (3.8-5.5); Red Cell Distribution Width 13.9 % (9.3-17.3); White Blood Count 10.8 T/CUMM (4-12)
[2016-11-14 07:24] LABS: Calcium 7.3 MG/DL (8.5-10.1); Osmolality,Calculated 278.5 MOS/KG (273-304); Potassium 4.1 MMOL/L (3.5-5.1)
[2016-11-14 07:25] LABS: Albumin 1.3 G/DL (3.4-5.0); Calcium 7.3 MG/DL (8.5-10.1); Osmolality,Calculated 277.5 MOS/KG (273-304); Phosphorous 4.9 MG/DL (2.5-4.9); Potassium 4.1 MMOL/L (3.5-5.1)
--- NOTE | 2016-11-14 08:13 | Hospitalist Progress Note ---
Hospitalist: Subjective Interval history: Pt reports constipation. Last BM 6 days ago. No fever. No cp or SOB. Tolerating po but feels full now. Pain controlled. Exam - Constitutional Vitals: Period Temp Pulse Resp BP Sys/Valdivia Pulse Ox Last 24 Hr 97 F-99.1 F 76-102 16-20 115-147/66-79 94-98 Exam: A and O x 2, appears to be in distress due to pain. RRR no M CTAB nonlabored Soft NT ,ND, +BS Warm right foot wrapped with dressings in place with an Darrel bandage. no cyanosis capillary refill around 2 sec. No c/c/e. 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 Hold Vanc due to elevated creatinine levels. F/U wound cultures. Cont local wound care. Surgery following (2) Uncontrolled DM2 with hyperglycemia (HgbA1c 13.6) Status: Acute Current Visit: Yes - DM education - BS controlled. Cont Insulin Novolin 70/30 20U BID. Accuchecks ac, hs. (3) Acute expected blood loss anemia Status: Acute Current Visit: Yes -transfuse 2 units of PRBCs 11/12. H and H improved. (4) Acute renal failure likely ATN/AIN Status: Acute Current Visit: Yes - Vanc dc'd. Holding ACEi. Renal Ultrasound normal. Consult Renal. Increase IVF. Monitor I and O's. Serial labs. - Renally dose medication - Avoid nephrotoxic agents. (5) Hypomagnesemia - replaced. (6) Severe protein calorie malnutrition - nutrition consult and supplementation (7) Constipation - Mag citrate x 1 and dulcolax suppository if no results. DVT prophylaxis Pt has been accepted to [facility] but cultures are still pending and creatinine has jumped up to 2.4. It appears it has plateaued. On IV fluids and repeat RFP. Nephrology following. Specialty Discharge - Follow Up or Referrals
[2016-11-14] MEDS: INSULIN REGULAR 100 UNIT/ML SUBCUT SCH ×4 (09:10→21:15)
[2016-11-14] MEDS: PANTOPRAZOLE 40 MG TABLET PO SCH (09:15)
[2016-11-14] MEDS: INSULIN ASPART PROTAMINE/ASPART 70/30 100 UNIT/ML SUBCUT SCH ×2 (09:15→16:39)
[2016-11-14] MEDS: SODIUM CHLORIDE 0.9% 1,000 ML IV SCH ×2 (10:17→21:37)
[2016-11-14] MEDS ORDERED: BISACODYL 10 MG SUPP RECTAL ONE (12:07)
[2016-11-14] MEDS ORDERED: BISACODYL 10 MG SUPP RECTAL PRN (12:07)
[2016-11-14] MEDS ORDERED: MAGNESIUM CITRATE 300 ML BOTTLE PO ONE (12:07)
--- NOTE | 2016-11-14 14:08 | Event Note ---
Afebrile vital signs stable. Foot is fairly clean with granulation tissue. There is some small areas of necrotic tissue present. We will continue local wound care.
--- NOTE | 2016-11-14 17:18 | Nephrology Progress Note ---
Nephrology - PN: Subj Interval history: Patient is resting no acute changes. Family at the bedside. Serum creatinine is noted to be 2.4. Exam (PN)-Nephrology - Vital Signs Vital signs: Period Temp Pulse Resp BP Sys/Valdivia Pulse Ox Last 24 Hr 97 F-98.9 F 76-102 16-20 109-160/67-87 91-98 - General Appearance General appearance: well-developed, well-nourished EENT: ATNC Neck: supple Respiratory: clear Cardiology: regular rate, regular rhythm Gastrointestinal: normoactive bowel sounds, no tenderness Neurologic: alert and oriented x3 Psychiatric: mood/affect appropriate - Lab 11/14/16 06:10 11/14/16 06:10 Most recent lab results Calcium 7.3 MG/DL (8.5-10.1) L 11/14/16 06:10 Phosphorus 4.9 MG/DL (2.5-4.9) 11/14/16 06:10 Magnesium 2.2 MG/DL (1.8-2.4) 11/12/16 08:00 Assessment and Plan (1) Acute renal failure Status: Acute Assessment and plan: Etiology is more likely due to ATN. Follow strict I's and O's. Daily BMP. Current Visit: Yes (2) Osteomyelitis of right foot Status: Acute Current Visit: Yes (3) Diabetic ulcer of right foot Status: Acute Current Visit: Yes Qualifiers: Diabetic foot ulcer location: toe Diabetes mellitus type: type 2 (4) Medical non-compliance Status: Chronic Current Visit: Yes (5) Renal insufficiency Status: Acute Current Visit: Yes Specialty Discharge - Follow Up or Referrals
[2016-11-15] MEDS: SODIUM CHLORIDE 0.9% 1,000 ML IV SCH ×4 (05:29→22:22)
[2016-11-15 07:22] LABS: Albumin 1.4 G/DL (3.4-5.0); Calcium 7.6 MG/DL (8.5-10.1); Osmolality,Calculated 281.1 MOS/KG (273-304); Phosphorous 4.7 MG/DL (2.5-4.9); Potassium 4.6 MMOL/L (3.5-5.1)
[2016-11-15] MEDS: PIPERACILLIN/TAZOBACTAM 3,375 MG in SODIUM CHLORIDE 0.9% 100 ML IV SCH (09:10)
[2016-11-15] MEDS: INSULIN ASPART PROTAMINE/ASPART 70/30 100 UNIT/ML SUBCUT SCH ×2 (09:10→16:18)
[2016-11-15] MEDS: PANTOPRAZOLE 40 MG TABLET PO SCH (09:10)
[2016-11-15] MEDS: INSULIN REGULAR 100 UNIT/ML SUBCUT SCH ×4 (09:10→20:24)
--- NOTE | 2016-11-15 09:30 | Hospitalist Progress Note ---
Assessment and Plan (1) Osteomyelitis of right foot Status: Acute Assessment and plan: The patient continues with IV antibiotics including daptomycin. I am going to change Zosyn to Unasyn to reduce continued nephrotoxic risk. Creatinine appears to have plateaued and we will recheck it tomorrow. The patient continues on local wound care and blood glucose appears well controlled now. Current Visit: Yes (2) Acute renal failure Status: Acute Current Visit: Yes Hospitalist: Subjective Interval history: The patient has diabetic foot infection. The patient's wound has been debrided and Dr. Chacon states that the wound is granulating well. The patient continues on intravenous antibiotics with daptomycin and Zosyn. The patient's renal function deteriorated several days ago while he was taking vancomycin. The patient has no new complaints today and oral intake is satisfactory. Exam - Constitutional Vitals: Period Temp Pulse Resp BP Sys/Valdivia Pulse Ox Last 24 Hr 96.1 F-98.3 F 77-94 18-20 109-168/67-87 94-100 Exam: Constitutional System: Mild distress. No tremulousness. Head: Normocephalic, atraumatic. Ears, Nose and Throat System: No evidence of Otitis or Mastoiditis. No epistaxis or discharge Eyes System: Pupils equal, round, and reactive. Extraocular muscles intact. Neck: Supple, without adenopathy, No jugular venous distention. No thyromegaly , neck mass, or prior surgery apparent. Respiratory System: Chest clear to auscultation. Cardiovascular System: Heart with regular rate and rhythm. No murmur. GI System: Abdomen soft, nontender. Normo active bowel sounds present. Results - Labs CBC & BMP: 11/14/16 06:10 11/15/16 06:04 Lab Results: I have reviewed the past 24 hour labs Specialty Discharge - Follow Up or Referrals
[2016-11-15] MEDS ORDERED: AMPICILLIN/SULBACTAM 1,500 MG in SODIUM CHLORIDE 0.9% 100 ML IV SCH (10:00)
--- NOTE | 2016-11-15 11:41 | Event Note ---
Afebrile vital signs stable. Patient has no complaints. Left foot has some areas of necrosis. Probably needs further debridement. We will make him n.p.o. at midnight.
--- NOTE | 2016-11-15 12:33 | Nephrology Progress Note ---
Nephrology - PN: Subj Interval history: Patient is resting comfortably no acute changes. Serum creatinine noted to be 2.3 which is stable. No fevers or chills. Exam (PN)-Nephrology - Vital Signs Vital signs: Period Temp Pulse Resp BP Sys/Valdivia Pulse Ox Last 24 Hr 96.1 F-97.7 F 77-94 18-20 109-168/67-85 95-100 - General Appearance General appearance: well-developed, well-nourished EENT: ATNC Neck: supple Respiratory: clear Cardiology: regular rate, regular rhythm Gastrointestinal: normoactive bowel sounds, no tenderness Integumentary: no rash Neurologic: alert and oriented x3, CN 3-12 intact Psychiatric: mood/affect appropriate - Lab 11/14/16 06:10 11/15/16 06:04 Most recent lab results Calcium 7.6 MG/DL (8.5-10.1) L 11/15/16 06:04 Phosphorus 4.7 MG/DL (2.5-4.9) 11/15/16 06:04 Magnesium 2.2 MG/DL (1.8-2.4) 11/12/16 08:00 Assessment and Plan (1) Acute renal failure Status: Acute Assessment and plan: Etiology is more likely due to ATN. Follow strict I's and O's. Daily BMP. Current Visit: Yes (2) Osteomyelitis of right foot Status: Acute Current Visit: Yes (3) Diabetic ulcer of right foot Status: Acute Current Visit: Yes Qualifiers: Diabetic foot ulcer location: toe Diabetes mellitus type: type 2 (4) Medical non-compliance Status: Chronic Current Visit: Yes (5) Renal insufficiency Status: Acute Current Visit: Yes Specialty Discharge - Follow Up or Referrals
[2016-11-15] MEDS: AMPICILLIN/SULBACTAM 1,500 MG in SODIUM CHLORIDE 0.9% 100 ML IV SCH ×3 (13:17→23:40)
[2016-11-15] MEDS: ONDANSETRON 4 MG/2 ML VIAL IV PRN (21:07)
[2016-11-16] MEDS: AMPICILLIN/SULBACTAM 1,500 MG in SODIUM CHLORIDE 0.9% 100 ML IV SCH ×2 (05:56→11:43)
[2016-11-16 06:33] LABS: Albumin 1.4 G/DL (3.4-5.0); Calcium 7.5 MG/DL (8.5-10.1); Osmolality,Calculated 282.1 MOS/KG (273-304); Phosphorous 4.1 MG/DL (2.5-4.9); Potassium 4.7 MMOL/L (3.5-5.1)
--- NOTE | 2016-11-16 06:45 | Nephrology Progress Note ---
Nephrology - PN: Subj Interval history: Patient is resting no acute changes serum creatinine remains stable at 2.3. Exam (PN)-Nephrology - Vital Signs Vital signs: Period Temp Pulse Resp BP Sys/Valdivia Pulse Ox Last 24 Hr 97.6 F-98.8 F 82-99 18-20 149-166/75-98 95-98 - General Appearance General appearance: well-developed, well-nourished EENT: ATNC Neck: supple Respiratory: clear Cardiology: regular rate, regular rhythm Gastrointestinal: normoactive bowel sounds, no tenderness Psychiatric: mood/affect appropriate - Lab 11/14/16 06:10 11/16/16 06:04 Most recent lab results Calcium 7.5 MG/DL (8.5-10.1) L 11/16/16 06:04 Phosphorus 4.1 MG/DL (2.5-4.9) 11/16/16 06:04 Magnesium 2.2 MG/DL (1.8-2.4) 11/12/16 08:00 Assessment and Plan (1) Acute renal failure Status: Acute Assessment and plan: Etiology is more likely due to ATN. Follow strict I's and O's. Daily BMP. Current Visit: Yes (2) Osteomyelitis of right foot Status: Acute Current Visit: Yes (3) Diabetic ulcer of right foot Status: Acute Current Visit: Yes Qualifiers: Diabetic foot ulcer location: toe Diabetes mellitus type: type 2 (4) Medical non-compliance Status: Chronic Current Visit: Yes (5) Renal insufficiency Status: Acute Current Visit: Yes Specialty Discharge - Follow Up or Referrals
[2016-11-16] MEDS ORDERED: LEVOFLOXACIN INJ 750 MG in PREMIX 1 EACH IV SCH (07:00)
--- NOTE | 2016-11-16 07:39 | Event Note ---
General Surgery Progress Note Chief complaint This patient is a 41-year-old man with diabetes admitted with wet gangrene of his right foot treated with ray amputation of right second through fifth toes on 11/10/2016 Interval history The patient is doing well. Physical exam Afebrile with normal vital signs Right foot wound is clean. There is a small amount of sloughing tissue on the plantar aspect of the foot but this is breaking up and sloughing off slowly. Bedside debridement was performed some today. The patient will need to go to an LTAC for wound care. He will probably need a skin graft once his wound granulates appropriately. Labs creatinine stable 2.30 Imaging None Assessment and plan continue antibiotics unasyn and levaquin IV Continue wound care transfer to LTAC [facility]
[2016-11-16] MEDS: INSULIN REGULAR 100 UNIT/ML SUBCUT SCH ×2 (07:55→11:42)
[2016-11-16] MEDS: INSULIN ASPART PROTAMINE/ASPART 70/30 100 UNIT/ML SUBCUT SCH (08:08)
[2016-11-16] MEDS ORDERED: GLUCAGON 1 MG VIAL IM PRN (08:26)
[2016-11-16] MEDS ORDERED: DEXTROSE 50% 25 GM/50 ML VIAL IV PRN (08:26)
[2016-11-16] MEDS: MORPHINE 2 MG/1 ML SYRINGE IV PRN ×2 (08:37→15:08)
[2016-11-16] MEDS: PANTOPRAZOLE 40 MG TABLET PO SCH (08:38)
[2016-11-16] MEDS ORDERED: SODIUM HYPOCHLORITE 0.25% IRRIG 473 ML BOTTLE TOP SCH (09:00)
[2016-11-16] MEDS: SODIUM CHLORIDE 0.9% 1,000 ML IV SCH (10:09)
[2016-11-16 11:25] VITALS: BP 112/67
--- NOTE | 2016-11-16 11:48 | Discharge Summary ---
Hospital Course - Hospital Course Hospital Course: This is a 41-year-old [place] man who presented to the hospital with gas gangrene of the right foot. The patient was admitted for IV antibiotics and had general surgery consultation with Dr. Gimenez. The patient had ray amputation of the right second third fourth and fifth toes on November 10. The patient was initially treated with a combination of vancomycin and Zosyn. The patient's creatinine increased from 1 to 2.5. The patient had nephrology evaluation. Dr. Pham felt that the increase of creatinine was likely due to acute tubular necrosis worsened by vancomycin and Zosyn antibiotics. We made change of regimen to Levaquin and Unasyn to reduce nephrotoxicity. The patient' s wound is granulating. Dr. garcia the requested the patient be transferred to [facility] for continued care. Diabetes shows good control on present regimen. On the date of discharge, chest clear, heart has regular rate and rhythm, abdomen soft. 32 minutes were required for discharge procedures. - Time spent with patient Time with patient DS: Greater than 30 minutes Diagnosis - Discharge Diagnosis (1) Osteomyelitis of right foot Status: Acute (2) Acute renal failure Status: Acute (3) DM2 (diabetes mellitus, type 2) Status: Chronic Specialty Discharge - Follow Up or Referrals Follow up with: Dean Gimenez MD [Physician] - (NOTIFY OF PATIENT AND ROOM NUMBER UPON ARRIVAL.) Ismael Abrams Jr., MD [Physician] - (NOTIFY OF PATIENT AND ROOM NUMBER UPON ARRIVAL.) Discharge Plan - Discharge Data Disposition: Disch/Xfer to [facility] Condition at Discharge: Stable Discharge Diet: diabetic diet Activity: as per physical therapy - Discharge Medications New Dextrose 50% [D50] 25 gm IV PRN PRN #0 vial PRN Reason: Hypoglycemia with IV access Glucagon 1 mg IM PRN PRN #0 vial PRN Reason: Hypoglycemia w/o IV access HYDROcodone/ACETAMIN 10-325 [[place] 10-325] 1 tablet PO Q4H PRN #0 tablet PRN Reason: Pain Moderate (4-7) Levofloxacin Inj [Levaquin Inj] 750 mg IV Q48H Ondansetron Inj [Zofran Inj] 4 mg IV Q4H PRN #0 vial PRN Reason: Nausea Pantoprazole Tab [Protonix Tab] 40 mg PO DAILY tablet Ampicillin/Sulbactam [Unasyn] 1,500 mg IV Q6H vial Bisacodyl Supp [Dulcolax Supp] 10 mg RECTAL DAILY PRN #0 supp PRN Reason: Constipation Insulin Regular [HumuLIN R] See Protocol SUBCUT ACHS unit Sodium Hypochlorite 0.25% Irr [Dakins 1/2 Strength 0.25% Soln] 1 applic TOP DAILY applic Continue Aspirin [Aspirin EC] 81 mg PO DAILY glyBURIDE/METFORMIN 5-500 [Glucovance 5-500] 1 tablet PO BID W/MEALS Discontinued Insulin Aspart [NovoLOG FlexPen] 10 unit SUBCUT BID W/MEALS Lisinopril 20 mg PO DAILY - Follow Up or Referral Follow Up: Dean Gimenez MD [Physician] - (NOTIFY OF PATIENT AND ROOM NUMBER UPON ARRIVAL.) Ismael Abrams Jr., MD [Physician] - (NOTIFY OF PATIENT AND ROOM NUMBER UPON ARRIVAL.) - Forms/Instructions Instructions: Osteomyelitis (DC), Toe Amputation (DC) Exam - Constitutional Vitals: Period Temp Pulse Resp BP Sys/Valdivia Pulse Ox Last 24 Hr 97.3 F-98.8 F 85-99 18-20 112-166/67-98 93-98 Discharge Results Procedures and tests throughout hospitalization: Pending Orders 11/17/16 04:00 Basic Metabolic Panel w/Mg IN AM 11/18/16 04:00 Basic Metabolic Panel w/Mg IN AM 11/19/16 04:00 Basic Metabolic Panel w/Mg IN AM 11/20/16 04:00 Basic Metabolic Panel w/Mg IN AM 11/21/16 04:00 Basic Metabolic Panel w/Mg IN AM Labs on day of discharge: Labs from last 24 hours 11/16/16 11/16/16 11/16/16 11:28 07:31 06:04 Sodium 142 Potassium 4.7 Chloride 110 H Carbon Dioxide 22 Anion Gap 14.7 BUN 12 Creatinine 2.30 H GFR Calculation 42 BUN/Creatinine Ratio 5.00 L Glucose 100 POC Glucose 204 H 93 Calculated Osmolality 282.1 Calcium 7.5 L Phosphorus 4.1 Albumin 1.4 L 11/15/16 11/15/16 11/15/16 20:22 16:00 11:43 Sodium Potassium Chloride Carbon Dioxide Anion Gap BUN Creatinine GFR Calculation BUN/Creatinine Ratio Glucose POC Glucose 137 H 127 H 125 H Calculated Osmolality Calcium Phosphorus Albumin DS: Provider Date of admission: 11/09/16 22:52 Primary care physician: Ibrahima Lindsey MD Attending physician on admission: Casper Antoine MD Consults: 11/09/16 23:02 Consult to [facility], Educator [CONS] Routine Reason for [place]: Diabetes Education Consult to Pharmacy [CONS] Routine Reason for Pharmacy Consult: Dose/Manage Vancomycin 11/10/16 02:33 Consult to Wound Care - [place] [CONS] Routine Reason for Wound Care: Wound Care Management 11/10/16 07:18 Consult to Anesthesiology [CONS] Routine Consulting Provider: Reason for Anesthesiology: Pre-op Clearance 11/10/16 14:27 Consult to Diabetes [place], Educator [CONS] Routine Reason for [place]: Diabetes Education 11/11/16 08:16 Consult to Case Mgmt/Social Srvs [CONS] Routine Reason for Case Mgmt/Social Srvs: LTAC Consult Comment: [facility] if possible 11/11/16 09:39 Consult to Physical Therapy [CONS] Routine Reason for Physical Therapy: Evaluate and Treat Consult Comment: touch down WB rle 11/13/16 07:44 Consult to Physician [CONS] Routine Comment: acute renal failure Consulting Provider: Isamel Abrams Jr. Consulting Provider Notified: Yes When should Consulting Provider be notified: Now Consult to Specialist Group: Nephrology When should Consulting Provider be notified: Now Person Notified: dr. abrams Date Notified: 11/13/16 Time Notified: 14:11 11/13/16 07:53 Consult to Dietitian [CONS] Routine Reason for Dietitian: Diet Recommendations Consult Comment: severe protein calorie malnutrition Discharging clinician: Ferdinand Mg MD
[2016-11-16] MEDS: ONDANSETRON 4 MG/2 ML VIAL IV PRN (15:04)
== END 2016-11-16 15:20 | DRG 239 ==
LOC: EDBD → EDUNIT# → N.ED 21:21 → N.EDINP 22:51 → SUATTDRO 22:51 → N.3E 11-10 00:10
PROVIDERS: ADMIT Internal Medicine; ATTEND Internal Medicine

== ENCOUNTER 2017-04-28 18:31 | Inpatient (IN) ==
[2017-04-28] MEDS ORDERED: GLUCAGON 1 MG VIAL IM PRN (18:35)
[2017-04-28] MEDS ORDERED: ONDANSETRON 4 MG/2 ML VIAL IV PRN (18:35)
[2017-04-28] MEDS ORDERED: DEXTROSE 50% 25 GM/50 ML VIAL IV PRN (18:35)
[2017-04-28] MEDS ORDERED: ACETAMINOPHEN 325 MG TABLET PO PRN (18:35)
[2017-04-28] MEDS ORDERED: HYDROmorphone 2 MG/1 ML VIAL IV PRN (18:35)
[2017-04-28 19:22] LABS: Basophils # 0.1 10*3/uL (0.0-0.2); Basophils % 0.8 % (0.0-0.8); Eosinophils % 9.8 % (0.00-10.9); Hematocrit 30.7 VOL% (42.0-52.0); Immature Granulocytes % 0.4 %; Immature Granulocytes Absolute 0.04 #; Lymphocytes # 2.7 10*3/uL (1.4-4.0); Lymphocytes % 27.7 % (21.2-54.2); Mean Corpuscular HGB Conc 35.8 GM/DL (32-36); Mean Corpuscular Hemoglobin 31 PG (27-34); Mean Corpuscular Volume 85.3 FL (87-102); Mean Platelet Volume 9.1 FL (9.6-12.0); Monocytes # 0.5 10*3/uL (0.11-0.8); Monocytes % 4.8 % (1.7-12.7); Neutrophils # 5.5 10*3/uL (1.4-7.4); Neutrophils % 56.5 % (38.7-73.9); Platelet Count 329 T/CUMM (130-400); Red Cell Distribution Width 12.9 % (9.3-17.3); White Blood Count 9.8 T/CUMM (4-12)
[2017-04-28 19:36] LABS: Calcium 8.5 MG/DL (8.5-10.1); Potassium 4.2 MMOL/L (3.5-5.1)
[2017-04-28] MEDS: CLINDAMYCIN INJ 900 MG in PREMIX 1 EACH IV SCH (20:30)
[2017-04-28] MEDS: LEVOFLOXACIN INJ 750 MG in PREMIX 1 EACH IV SCH (21:41)
[2017-04-28] MEDS: INSULIN REGULAR 100 UNIT/ML SUBCUT SCH (21:42)
[2017-04-29] MEDS: CLINDAMYCIN INJ 900 MG in PREMIX 1 EACH IV SCH ×3 (01:50→16:29)
[2017-04-29] MEDS ORDERED: BUPIVACAINE 0.25% 50 ML VIAL ONE (08:32)
[2017-04-29] MEDS ORDERED: fentaNYL 100 MCG/2 ML VIAL ONE (09:39)
[2017-04-29] MEDS ORDERED: MIDAZOLAM 2 MG/2 ML VIAL ONE (09:39)
[2017-04-29] MEDS ORDERED: PROPOFOL 200 MG/20 ML VIAL IV ONE (09:39)
[2017-04-29] MEDS: INSULIN REGULAR 100 UNIT/ML SUBCUT SCH ×5 (10:01→22:18)
[2017-04-29] MEDS: hydroCHLOROthiazide 25 MG TABLET PO SCH (10:03)
[2017-04-29] MEDS: LISINOPRIL 20 MG TABLET PO SCH (10:03)
[2017-04-29] MEDS: MULTIVITAMIN (BEROCCA) TABLET PO SCH ×2 (10:03→22:21)
[2017-04-29] MEDS: ASPIRIN CHEW 81 MG TABLET PO SCH (10:03)
[2017-04-29] MEDS: PANTOPRAZOLE 40 MG TABLET PO SCH (10:03)
[2017-04-29] MEDS: DILTIAZEM CD 240 MG CAPSULE PO SCH (22:19)
[2017-04-29] MEDS: PRAVASTATIN 20 MG TABLET PO SCH (22:21)
[2017-04-29] MEDS: LEVOFLOXACIN INJ 750 MG in PREMIX 1 EACH IV SCH (22:22)
[2017-04-30] MEDS: CLINDAMYCIN INJ 900 MG in PREMIX 1 EACH IV SCH ×3 (01:33→19:22)
[2017-04-30 04:34] LABS: Basophils # 0.1 10*3/uL (0.0-0.2); Basophils % 0.7 % (0.0-0.8); Eosinophils % 12.7 % (0.00-10.9); Hematocrit 27.9 VOL% (42.0-52.0); Hemoglobin 9.7 GM/DL (14.0-18.0); Immature Granulocytes % 0.9 %; Immature Granulocytes Absolute 0.07 #; Lymphocytes # 2.8 10*3/uL (1.4-4.0); Lymphocytes % 36.9 % (21.2-54.2); Mean Corpuscular HGB Conc 34.8 GM/DL (32-36); Mean Corpuscular Hemoglobin 30 PG (27-34); Mean Corpuscular Volume 85.8 FL (87-102); Mean Platelet Volume 9.2 FL (9.6-12.0); Monocytes # 0.5 10*3/uL (0.11-0.8); Monocytes % 6.1 % (1.7-12.7); Neutrophils # 3.2 10*3/uL (1.4-7.4); Neutrophils % 42.7 % (38.7-73.9); Platelet Count 296 T/CUMM (130-400); Red Blood Count 3.25 MC/CUMM (3.8-5.5); Red Cell Distribution Width 13.1 % (9.3-17.3); White Blood Count 7.6 T/CUMM (4-12)
[2017-04-30 05:05] LABS: Eosinophils 12 % (0-10); Giant Platelets Few; Hypochromasia 1+; Lymphocytes 35 % (20-55); Ovalocytes Slight; Platelet Estimate Adequate; Segmented Neutrophils 47 % (50-85); Total Cells Counted 100
[2017-04-30 05:06] LABS: Calcium 8.4 MG/DL (8.5-10.1); Osmolality,Calculated 286.3 MOS/KG (273-304); Potassium 3.9 MMOL/L (3.5-5.1)
[2017-04-30] MEDS: hydroCHLOROthiazide 25 MG TABLET PO SCH (09:01)
[2017-04-30] MEDS: LISINOPRIL 20 MG TABLET PO SCH (09:01)
[2017-04-30] MEDS: MULTIVITAMIN (BEROCCA) TABLET PO SCH ×2 (09:01→20:40)
[2017-04-30] MEDS: ASPIRIN CHEW 81 MG TABLET PO SCH (09:01)
[2017-04-30] MEDS: PANTOPRAZOLE 40 MG TABLET PO SCH (09:02)
[2017-04-30] MEDS: INSULIN REGULAR 100 UNIT/ML SUBCUT SCH ×4 (09:08→20:41)
[2017-04-30] MEDS: PRAVASTATIN 20 MG TABLET PO SCH (20:40)
[2017-04-30] MEDS: DILTIAZEM CD 240 MG CAPSULE PO SCH (20:40)
[2017-04-30] MEDS: LEVOFLOXACIN INJ 750 MG in PREMIX 1 EACH IV SCH (20:40)
[2017-05-01] MEDS: CLINDAMYCIN INJ 900 MG in PREMIX 1 EACH IV SCH ×3 (05:35→22:35)
[2017-05-01] MEDS: MULTIVITAMIN (BEROCCA) TABLET PO SCH ×2 (09:17→20:55)
[2017-05-01] MEDS: hydroCHLOROthiazide 25 MG TABLET PO SCH (09:17)
[2017-05-01] MEDS: ASPIRIN CHEW 81 MG TABLET PO SCH (09:17)
[2017-05-01] MEDS: LISINOPRIL 20 MG TABLET PO SCH (09:17)
[2017-05-01] MEDS: PANTOPRAZOLE 40 MG TABLET PO SCH (09:17)
[2017-05-01] MEDS: INSULIN REGULAR 100 UNIT/ML SUBCUT SCH ×4 (09:20→20:56)
[2017-05-01] MEDS: DILTIAZEM CD 240 MG CAPSULE PO SCH (20:55)
[2017-05-01] MEDS: LEVOFLOXACIN INJ 750 MG in PREMIX 1 EACH IV SCH (20:56)
[2017-05-01] MEDS: PRAVASTATIN 20 MG TABLET PO SCH (20:57)
[2017-05-02] MEDS: CLINDAMYCIN INJ 900 MG in PREMIX 1 EACH IV SCH ×3 (06:21→22:32)
[2017-05-02] MEDS: ASPIRIN CHEW 81 MG TABLET PO SCH (10:16)
[2017-05-02] MEDS: hydroCHLOROthiazide 25 MG TABLET PO SCH (10:16)
[2017-05-02] MEDS: MULTIVITAMIN (BEROCCA) TABLET PO SCH ×2 (10:17→20:58)
[2017-05-02] MEDS: LISINOPRIL 20 MG TABLET PO SCH (10:17)
[2017-05-02] MEDS: PANTOPRAZOLE 40 MG TABLET PO SCH (10:28)
[2017-05-02] MEDS: INSULIN REGULAR 100 UNIT/ML SUBCUT SCH ×4 (10:30→21:05)
[2017-05-02] MEDS: DILTIAZEM CD 240 MG CAPSULE PO SCH (20:58)
[2017-05-02] MEDS: LEVOFLOXACIN INJ 750 MG in PREMIX 1 EACH IV SCH (20:59)
[2017-05-02] MEDS: PRAVASTATIN 20 MG TABLET PO SCH (20:59)
[2017-05-03] MEDS: CLINDAMYCIN INJ 900 MG in PREMIX 1 EACH IV SCH (06:31)
[2017-05-03] MEDS: INSULIN REGULAR 100 UNIT/ML SUBCUT SCH ×3 (08:28→17:06)
[2017-05-03] MEDS: LISINOPRIL 20 MG TABLET PO SCH (09:40)
[2017-05-03] MEDS: ASPIRIN CHEW 81 MG TABLET PO SCH (09:40)
[2017-05-03] MEDS: hydroCHLOROthiazide 25 MG TABLET PO SCH (09:40)
[2017-05-03] MEDS: PANTOPRAZOLE 40 MG TABLET PO SCH (09:40)
[2017-05-03] MEDS: MULTIVITAMIN (BEROCCA) TABLET PO SCH (09:40)
[2017-05-03 16:06] VITALS: BP 149/72
== END 2017-05-03 17:32 | disposition home or self-care (01) | DRG 623 ==
LOC: N.2E 18:33 → EDSTATUS 04-29 12:00
PROVIDERS: ADMIT Surgery; ATTEND Surgery

== ENCOUNTER 2018-06-14 14:08 | Inpatient (IN) ==
[2018-06-14] MEDS ORDERED: VANCOMYCIN INJ 1,500 MG in SODIUM CHLORIDE 0.9% 250 ML IV STA (15:20)
[2018-06-14] MEDS ORDERED: VANCOMYCIN INJ 1,500 MG in SODIUM CHLORIDE 0.9% 500 ML IV STA (15:24)
[2018-06-14] MEDS ORDERED: PIPERACILLIN/TAZOBACTAM 3,375 MG in SODIUM CHLORIDE 0.9% 100 ML IV STA (15:54)
[2018-06-14 16:11] LABS: Basophils % 0.4 % (0.0-0.8); Eosinophils # 0.5 10*3/uL (0.0-0.87); Eosinophils % 5.1 % (0.00-10.9); Hematocrit 27.7 VOL% (42.0-52.0); Hemoglobin 8.8 GM/DL (14.0-18.0); Immature Granulocytes % 0.8 %; Immature Granulocytes Absolute 0.08 #; Lymphocytes # 2.1 10*3/uL (1.4-4.0); Lymphocytes % 20.9 % (21.2-54.2); Mean Corpuscular HGB Conc 31.8 GM/DL (32-36); Mean Corpuscular Hemoglobin 28 PG (27-34); Mean Corpuscular Volume 87.4 FL (87-102); Mean Platelet Volume 8.2 FL (9.6-12.0); Monocytes # 0.4 10*3/uL (0.11-0.8); Monocytes % 4.1 % (1.7-12.7); Neutrophils % 68.7 % (38.7-73.9); Platelet Count 554 T/CUMM (130-400); Red Blood Count 3.17 MC/CUMM (3.8-5.5); Red Cell Distribution Width 14.1 % (9.3-17.3); White Blood Count 10.2 T/CUMM (4-12)
[2018-06-14] MEDS ORDERED: VANCOMYCIN 1,000 MG VIAL ONE (16:26)
[2018-06-14 16:33] LABS: Lactic Acid 1.6 MMOL/L (0.4-2.0)
[2018-06-14 16:35] LABS: Alanine Aminotransferase 16 U/L (16-61); Albumin 2.3 G/DL (3.4-5.0); Alkaline Phosphatase 136 U/L (45-117); Aspartate Amino Transferase 8 U/L (0-37); Bilirubin,Total < 0.39 MG/DL (0.2-1.0); Blood Urea Nitrogen 23 MG/DL (7-18); Calcium 7.9 MG/DL (8.5-10.1); Glucose 212 MG/DL (74-106); Potassium 4.6 MMOL/L (3.5-5.1); Sodium 136 MMOL/L (136-145); Total Protein 8.6 G/DL (6.4-8.3)
[2018-06-14] MEDS ORDERED: ACETAMINOPHEN 325 MG TABLET PO PRN (19:47)
[2018-06-14] MEDS ORDERED: ALUMINUM/MAGNES/SIMETH MAX STR 30 ML UDCUP PO PRN (19:47)
[2018-06-14] MEDS ORDERED: ONDANSETRON 4 MG/2 ML VIAL IV PRN (19:47)
[2018-06-14] MEDS ORDERED: GLUCAGON 1 MG VIAL IM PRN (19:47)
[2018-06-14] MEDS ORDERED: MORPHINE 4 MG/1 ML VIAL IV PRN (19:47)
[2018-06-14] MEDS ORDERED: DEXTROSE 50% 25 GM/50 ML SYRINGE IV PRN (19:47)
[2018-06-14] MEDS ORDERED: BISACODYL 5 MG TABLET PO PRN (19:47)
[2018-06-14] MEDS: INSULIN LISPRO 100 UNIT/ML SUBCUT SCH (20:42)
[2018-06-14] MEDS: glyBURIDE/METFORMIN 5-500 MG TABLET PO SCH (20:42)
[2018-06-14] MEDS: LACTATED RINGERS 1,000 ML IV SCH (20:56)
[2018-06-14] MEDS: DILTIAZEM CD 240 MG CAPSULE PO SCH (20:57)
[2018-06-14] MEDS: GABAPENTIN 300 MG CAPSULE PO SCH (20:57)
[2018-06-14] MEDS: SIMVASTATIN 10 MG TABLET PO SCH (20:58)
[2018-06-14] MEDS ORDERED: VANCOMYCIN INJ 1,000 MG in SODIUM CHLORIDE 0.9% 250 ML IV ONE (21:00)
[2018-06-15] MEDS: PIPERACILLIN/TAZOBACTAM 3,375 MG in SODIUM CHLORIDE 0.9% 100 ML IV SCH ×3 (01:26→17:37)
[2018-06-15 05:48] LABS: Basophils # 0.1 10*3/uL (0.0-0.2); Basophils % 0.5 % (0.0-0.8); Eosinophils # 0.7 10*3/uL (0.0-0.87); Eosinophils % 7.2 % (0.00-10.9); Hematocrit 26.8 VOL% (42.0-52.0); Hemoglobin 8.4 GM/DL (14.0-18.0); Immature Granulocytes % 0.6 %; Immature Granulocytes Absolute 0.06 #; Lymphocytes # 2.5 10*3/uL (1.4-4.0); Lymphocytes % 25.1 % (21.2-54.2); Mean Corpuscular HGB Conc 31.3 GM/DL (32-36); Mean Corpuscular Hemoglobin 28 PG (27-34); Mean Corpuscular Volume 88.7 FL (87-102); Mean Platelet Volume 8.5 FL (9.6-12.0); Monocytes # 0.5 10*3/uL (0.11-0.8); Monocytes % 5.2 % (1.7-12.7); Neutrophils # 6.2 10*3/uL (1.4-7.4); Neutrophils % 61.4 % (38.7-73.9); Platelet Count 552 T/CUMM (130-400); Red Blood Count 3.02 MC/CUMM (3.8-5.5); Red Cell Distribution Width 14.2 % (9.3-17.3)
[2018-06-15 06:19] LABS: Osmolality,Calculated 283.5 MOS/KG (273-304); Potassium 4.6 MMOL/L (3.5-5.1)
[2018-06-15] MEDS ORDERED: LISINOPRIL 20 MG TABLET PO SCH (09:00)
[2018-06-15] MEDS ORDERED: SEVOFLURANE 1 UNIT/15 MINUTE INH ONE (11:06)
[2018-06-15] MEDS ORDERED: PROPOFOL 200 MG/20 ML VIAL IV ONE (11:06)
[2018-06-15] MEDS ORDERED: PHENYLEPHRINE 1 MG/10 ML SYRINGE IV ONE (11:07)
[2018-06-15] MEDS ORDERED: fentaNYL 100 MCG/2 ML VIAL ONE (11:07)
[2018-06-15] MEDS ORDERED: MIDAZOLAM 2 MG/2 ML VIAL ONE (11:07)
[2018-06-15] MEDS ORDERED: SODIUM CHLORIDE 0.9% 1,000 ML IV ONE (11:07)
[2018-06-15] MEDS ORDERED: ONDANSETRON 4 MG/2 ML VIAL IV PRN (11:11)
[2018-06-15] MEDS ORDERED: ONDANSETRON 4 MG/2 ML VIAL ONE (11:13)
[2018-06-15] MEDS ORDERED: HYDROmorphone 2 MG/1 ML VIAL ONE (11:13)
[2018-06-15] MEDS: INSULIN LISPRO 100 UNIT/ML SUBCUT SCH ×4 (11:28→21:22)
[2018-06-15 11:30] LABS: Apearance,Urine Slightly Hazy (Clear); Bilirubin,Urine Negative (Negative); Blood, Urine Small mg/dL (Negative); Glucose,Urine (UA) Negative (Negative); Ketones,Urine Negative (Negative); Nitrite,Urine Negative (Negative); Protein,Urine Negative; RBC,Urine 2 /HPF (0-4); Squamous Epithelial Cell,Urine Occasional /HPF (0-10); Urine Color Straw (Yellow); Urine Urobilinogen < 2.0 EU/DL (0.2-1.0); WBC,Urine 48 /HPF (0-6)
[2018-06-15] MEDS: HYDROmorphone 2 MG/1 ML VIAL IV PRN ×2 (11:31→11:32)
[2018-06-15] MEDS: glyBURIDE/METFORMIN 5-500 MG TABLET PO SCH ×2 (11:58→17:37)
[2018-06-15] MEDS: hydroCHLOROthiazide 25 MG TABLET PO SCH (12:00)
[2018-06-15] MEDS: GABAPENTIN 300 MG CAPSULE PO SCH ×2 (12:00→21:08)
[2018-06-15] MEDS: PANTOPRAZOLE 40 MG TABLET PO SCH (12:01)
[2018-06-15] MEDS: LACTATED RINGERS 1,000 ML IV SCH ×2 (12:56→14:15)
[2018-06-15] MEDS: ENOXAPARIN 40 MG/0.4 ML SYRINGE SUBCUT SCH (14:15)
[2018-06-15] MEDS: DILTIAZEM CD 240 MG CAPSULE PO SCH (21:08)
[2018-06-15] MEDS: SIMVASTATIN 10 MG TABLET PO SCH (21:08)
[2018-06-15] MEDS: VANCOMYCIN INJ 1,500 MG in SODIUM CHLORIDE 0.9% 500 ML IV SCH (21:17)
[2018-06-16] MEDS: PIPERACILLIN/TAZOBACTAM 3,375 MG in SODIUM CHLORIDE 0.9% 100 ML IV SCH ×3 (01:06→18:35)
[2018-06-16 05:07] LABS: Basophils % 0.3 % (0.0-0.8); Eosinophils # 0.8 10*3/uL (0.0-0.87); Eosinophils % 7.8 % (0.00-10.9); Hematocrit 23.4 VOL% (42.0-52.0); Hemoglobin 7.2 GM/DL (14.0-18.0); Immature Granulocytes % 0.4 %; Immature Granulocytes Absolute 0.04 #; Lymphocytes # 2.7 10*3/uL (1.4-4.0); Lymphocytes % 27.3 % (21.2-54.2); Mean Corpuscular HGB Conc 30.8 GM/DL (32-36); Mean Corpuscular Hemoglobin 28 PG (27-34); Mean Corpuscular Volume 89.7 FL (87-102); Mean Platelet Volume 8.5 FL (9.6-12.0); Monocytes # 0.5 10*3/uL (0.11-0.8); Monocytes % 4.5 % (1.7-12.7); Neutrophils # 5.9 10*3/uL (1.4-7.4); Neutrophils % 59.7 % (38.7-73.9); Platelet Count 480 T/CUMM (130-400); Red Blood Count 2.61 MC/CUMM (3.8-5.5); Red Cell Distribution Width 14.4 % (9.3-17.3); White Blood Count 9.9 T/CUMM (4-12)
[2018-06-16 05:29] LABS: Calcium 7.5 MG/DL (8.5-10.1); Osmolality,Calculated 284.3 MOS/KG (273-304); Potassium 5.3 MMOL/L (3.5-5.1)
[2018-06-16] MEDS: INSULIN LISPRO 100 UNIT/ML SUBCUT SCH ×4 (08:51→22:35)
[2018-06-16] MEDS: glyBURIDE/METFORMIN 5-500 MG TABLET PO SCH ×2 (09:57→18:34)
[2018-06-16] MEDS: GABAPENTIN 300 MG CAPSULE PO SCH ×2 (09:57→21:12)
[2018-06-16] MEDS: ENOXAPARIN 40 MG/0.4 ML SYRINGE SUBCUT SCH (09:57)
[2018-06-16] MEDS: hydroCHLOROthiazide 25 MG TABLET PO SCH (09:57)
[2018-06-16] MEDS: SODIUM CHLORIDE 0.9% 1,000 ML IV SCH ×2 (09:58→22:36)
[2018-06-16] MEDS: PANTOPRAZOLE 40 MG TABLET PO SCH (14:22)
[2018-06-16] MEDS: DILTIAZEM CD 240 MG CAPSULE PO SCH (21:12)
[2018-06-16] MEDS: SIMVASTATIN 10 MG TABLET PO SCH (21:12)
[2018-06-16] MEDS: VANCOMYCIN INJ 1,500 MG in SODIUM CHLORIDE 0.9% 500 ML IV SCH (21:12)
[2018-06-17] MEDS: PIPERACILLIN/TAZOBACTAM 3,375 MG in SODIUM CHLORIDE 0.9% 100 ML IV SCH ×3 (02:29→17:53)
[2018-06-17 05:24] LABS: Calcium 7.9 MG/DL (8.5-10.1); Osmolality,Calculated 283.1 MOS/KG (273-304); Potassium 4.6 MMOL/L (3.5-5.1)
[2018-06-17 05:29] LABS: Basophils % 0.3 % (0.0-0.8); Eosinophils # 0.7 10*3/uL (0.0-0.87); Eosinophils % 7.8 % (0.00-10.9); Hematocrit 22.4 VOL% (42.0-52.0); Immature Granulocytes % 0.5 %; Immature Granulocytes Absolute 0.04 #; Lymphocytes # 2.3 10*3/uL (1.4-4.0); Mean Corpuscular HGB Conc 31.3 GM/DL (32-36); Mean Corpuscular Hemoglobin 29 PG (27-34); Mean Corpuscular Volume 91.1 FL (87-102); Mean Platelet Volume 8.4 FL (9.6-12.0); Monocytes # 0.4 10*3/uL (0.11-0.8); Monocytes % 4.4 % (1.7-12.7); Neutrophils # 5.4 10*3/uL (1.4-7.4); Platelet Count 427 T/CUMM (130-400); Red Blood Count 2.46 MC/CUMM (3.8-5.5); Red Cell Distribution Width 14.4 % (9.3-17.3); White Blood Count 8.8 T/CUMM (4-12)
[2018-06-17] MEDS: hydroCHLOROthiazide 25 MG TABLET PO SCH (09:16)
[2018-06-17] MEDS: GABAPENTIN 300 MG CAPSULE PO SCH ×2 (09:17→21:05)
[2018-06-17] MEDS: glyBURIDE/METFORMIN 5-500 MG TABLET PO SCH ×2 (09:17→17:53)
[2018-06-17] MEDS: PANTOPRAZOLE 40 MG TABLET PO SCH (09:17)
[2018-06-17] MEDS: INSULIN LISPRO 100 UNIT/ML SUBCUT SCH ×4 (09:18→21:08)
[2018-06-17] MEDS: SODIUM HYPOCHLORITE 0.25% IRRIG 473 ML BOTTLE TOP SCH (10:38)
[2018-06-17] MEDS: ENOXAPARIN 40 MG/0.4 ML SYRINGE SUBCUT SCH (13:22)
[2018-06-17] MEDS: SIMVASTATIN 10 MG TABLET PO SCH (21:05)
[2018-06-17] MEDS: DILTIAZEM CD 240 MG CAPSULE PO SCH (21:06)
[2018-06-17] MEDS: VANCOMYCIN INJ 1,500 MG in SODIUM CHLORIDE 0.9% 500 ML IV SCH (21:07)
[2018-06-18] MEDS: PIPERACILLIN/TAZOBACTAM 3,375 MG in SODIUM CHLORIDE 0.9% 100 ML IV SCH ×3 (01:23→17:00)
[2018-06-18] MEDS: INSULIN LISPRO 100 UNIT/ML SUBCUT SCH ×3 (08:57→16:02)
[2018-06-18] MEDS: glyBURIDE/METFORMIN 5-500 MG TABLET PO SCH ×2 (09:03→17:07)
[2018-06-18] MEDS: hydroCHLOROthiazide 25 MG TABLET PO SCH (09:04)
[2018-06-18] MEDS: GABAPENTIN 300 MG CAPSULE PO SCH ×2 (09:04→20:33)
[2018-06-18] MEDS: PANTOPRAZOLE 40 MG TABLET PO SCH (09:04)
[2018-06-18] MEDS: SODIUM HYPOCHLORITE 0.25% IRRIG 473 ML BOTTLE TOP SCH (09:06)
[2018-06-18] MEDS: ENOXAPARIN 40 MG/0.4 ML SYRINGE SUBCUT SCH (10:38)
[2018-06-18] MEDS: SIMVASTATIN 10 MG TABLET PO SCH (20:34)
[2018-06-18] MEDS: DILTIAZEM CD 240 MG CAPSULE PO SCH (20:34)
[2018-06-18] MEDS: VANCOMYCIN INJ 1,500 MG in SODIUM CHLORIDE 0.9% 500 ML IV SCH (20:35)
[2018-06-19] MEDS: INSULIN LISPRO 100 UNIT/ML SUBCUT SCH ×5 (00:35→20:59)
[2018-06-19] MEDS: PIPERACILLIN/TAZOBACTAM 3,375 MG in SODIUM CHLORIDE 0.9% 100 ML IV SCH ×3 (00:37→17:21)
[2018-06-19] MEDS: GABAPENTIN 300 MG CAPSULE PO SCH ×2 (09:20→20:57)
[2018-06-19] MEDS: hydroCHLOROthiazide 25 MG TABLET PO SCH (09:20)
[2018-06-19] MEDS: glyBURIDE/METFORMIN 5-500 MG TABLET PO SCH ×2 (09:20→17:21)
[2018-06-19] MEDS: SODIUM HYPOCHLORITE 0.25% IRRIG 473 ML BOTTLE TOP SCH (09:21)
[2018-06-19] MEDS: PANTOPRAZOLE 40 MG TABLET PO SCH (09:28)
[2018-06-19] MEDS: ENOXAPARIN 40 MG/0.4 ML SYRINGE SUBCUT SCH (11:24)
[2018-06-19] MEDS: DILTIAZEM CD 240 MG CAPSULE PO SCH (20:57)
[2018-06-19] MEDS: SIMVASTATIN 10 MG TABLET PO SCH (20:57)
[2018-06-19] MEDS: VANCOMYCIN INJ 1,500 MG in SODIUM CHLORIDE 0.9% 500 ML IV SCH (20:58)
[2018-06-20] MEDS: PIPERACILLIN/TAZOBACTAM 3,375 MG in SODIUM CHLORIDE 0.9% 100 ML IV SCH ×2 (00:35→08:29)
[2018-06-20 04:53] LABS: Basophils # 0.1 10*3/uL (0.0-0.2); Basophils % 0.6 % (0.0-0.8); Eosinophils # 0.8 10*3/uL (0.0-0.87); Hematocrit 24.6 VOL% (42.0-52.0); Hemoglobin 7.7 GM/DL (14.0-18.0); Immature Granulocytes % 0.5 %; Immature Granulocytes Absolute 0.04 #; Lymphocytes # 2.2 10*3/uL (1.4-4.0); Lymphocytes % 24.9 % (21.2-54.2); Mean Corpuscular HGB Conc 31.3 GM/DL (32-36); Mean Corpuscular Hemoglobin 28 PG (27-34); Mean Corpuscular Volume 88.2 FL (87-102); Mean Platelet Volume 8.4 FL (9.6-12.0); Monocytes # 0.5 10*3/uL (0.11-0.8); Monocytes % 5.9 % (1.7-12.7); Neutrophils # 5.2 10*3/uL (1.4-7.4); Neutrophils % 59.1 % (38.7-73.9); Platelet Count 423 T/CUMM (130-400); Red Blood Count 2.79 MC/CUMM (3.8-5.5); Red Cell Distribution Width 14.1 % (9.3-17.3); White Blood Count 8.7 T/CUMM (4-12)
[2018-06-20 05:16] LABS: Calcium 7.9 MG/DL (8.5-10.1); Osmolality,Calculated 280.1 MOS/KG (273-304); Potassium 3.7 MMOL/L (3.5-5.1)
[2018-06-20] MEDS: INSULIN LISPRO 100 UNIT/ML SUBCUT SCH ×2 (08:27→11:52)
[2018-06-20] MEDS: glyBURIDE/METFORMIN 5-500 MG TABLET PO SCH (08:28)
[2018-06-20] MEDS: GABAPENTIN 300 MG CAPSULE PO SCH (08:29)
[2018-06-20] MEDS: hydroCHLOROthiazide 25 MG TABLET PO SCH (08:29)
[2018-06-20] MEDS: SODIUM HYPOCHLORITE 0.25% IRRIG 473 ML BOTTLE TOP SCH (08:30)
[2018-06-20] MEDS: PANTOPRAZOLE 40 MG TABLET PO SCH (08:31)
[2018-06-20] MEDS ORDERED: LEVOFLOXACIN INJ 750 MG in PREMIX 1 EACH IV SCH (09:30)
[2018-06-20] MEDS: ENOXAPARIN 40 MG/0.4 ML SYRINGE SUBCUT SCH (10:07)
[2018-06-20] MEDS ORDERED: metroNIDAZOLE INJ 500 MG in PREMIX 1 EACH IV SCH (11:00)
[2018-06-20 11:45] VITALS: BP 192/93
== END 2018-06-20 15:30 | disposition hospice, home (50) | DRG 256 ==
LOC: N.ED 14:08 → N.EDINP 16:32 → N.3E 19:39
PROVIDERS: ADMIT Surgery; ATTEND Surgery

== ENCOUNTER 2020-12-24 15:14 | Inpatient (IN) ==
[2020-12-24 16:02] LABS: Basophils # 0.1 10*3/uL (0.0-0.2); Basophils % 0.4 % (0.0-0.8); Eosinophils % 0.1 % (0.00-10.9); Hematocrit 34.3 VOL% (42.0-52.0); Hemoglobin 11.8 GM/DL (14.0-18.0); Immature Granulocytes % 3.2 %; Immature Granulocytes Absolute 0.48 #; Lymphocytes # 0.9 10*3/uL (1.4-4.0); Mean Corpuscular HGB Conc 34.4 GM/DL (32-36); Mean Corpuscular Volume 82.5 FL (87-102); Mean Platelet Volume 9.6 FL (9.6-12.0); Monocytes % 6.1 % (1.7-12.7); Neutrophils % 84.2 % (38.7-73.9); Platelet Count 432 T/CUMM (130-400); Red Blood Count 4.16 MC/CUMM (3.8-5.5); Red Cell Distribution Width 13.5 % (9.3-17.3); White Blood Count 14.9 T/CUMM (4-12)
[2020-12-24 16:28] LABS: Albumin 1.5 G/DL (3.4-5.0); Bilirubin,Total 1.1 MG/DL (0.2-1.0); Calcium 8.6 MG/DL (8.5-10.1); Osmolality,Calculated 277.9 MOS/KG (273-304); Potassium 3.8 MMOL/L (3.5-5.1); Total Protein 8.5 G/DL (6.4-8.2)
[2020-12-24] MEDS ORDERED: SODIUM CHLORIDE 0.9% 1,000 ML IV STA (16:43)
[2020-12-24] MEDS ORDERED: INSULIN REGULAR 100 UNIT/ML IV ONE (16:43)
[2020-12-24] MEDS ORDERED: CLINDAMYCIN INJ 900 MG/50 ML PREMIX IV STA (16:44)
[2020-12-24] MEDS ORDERED: ALBUTEROL 2.5 MG/3 ML NEB RESP TX PRN (16:50)
[2020-12-24] MEDS ORDERED: SODIUM CHLORIDE 0.9% 1,000 ML IV ONE (16:58)
[2020-12-24] MEDS ORDERED: SODIUM CHLORIDE 0.9% 1,000 ML IV SCH (17:00)
[2020-12-24] MEDS ORDERED: METOPROLOL TARTRATE 5 MG/5 ML VIAL IV PRN (18:05)
[2020-12-24 18:11] LABS: Bacteria,Urine Moderate /HPF (Few); Bilirubin,Urine Negative (Negative); Blood, Urine Moderate mg/dL (Negative); Glucose,Urine (UA) >=500 mg/dL (Negative); Ketones,Urine 5 mg/dL (Negative); Mucus,Urine Many /LPF (Occasional); Nitrite,Urine Negative (Negative); Protein,Urine 100 MG/DL; RBC,Urine 1 /HPF (0-4); Urine Appearance Slightly Hazy (Clear); Urine Color Yellow (Yellow); Urine Specific Gravity 1.012 (1.001-1.035); Urine Urobilinogen < 2.0 EU/DL (0.2-1.0)
[2020-12-24] MEDS: INSULIN LISPRO 100 UNIT/ML SUBCUT SCH ×3 (19:15→21:07)
[2020-12-24 19:40] LABS: Barbiturates Screen,Urine Negative (Negative); Benzodiazepines Screen,Urine Negative (Negative); Cannabinoid Screen,Urine Negative (Negative); Opiate Screen,Urine Positive (Negative); Phencyclidine Screen,Urine Negative (Negative)
[2020-12-24] MEDS: SODIUM CHLORIDE 0.9% 1,000 ML IV SCH (19:44)
[2020-12-24] MEDS: FAMOTIDINE 20 MG/2 ML VIAL IV SCH (20:11)
[2020-12-24] MEDS: LINEZOLID INJ 600 MG/300 ML PREMIX IV SCH (21:00)
[2020-12-24] MEDS ORDERED: POTASSIUM CHLORIDE 20 MEQ TABLET PO ONE (21:21)
[2020-12-25] MEDS: INSULIN LISPRO 100 UNIT/ML SUBCUT SCH ×8 (00:19→21:02)
[2020-12-25] MEDS: SODIUM CHLORIDE 0.9% 1,000 ML IV SCH ×3 (03:51→21:40)
[2020-12-25 05:21] LABS: Basophils # 0.1 10*3/uL (0.0-0.2); Basophils % 0.3 % (0.0-0.8); Eosinophils % 0.2 % (0.00-10.9); Hemoglobin 10.3 GM/DL (14.0-18.0); Immature Granulocytes % 2.8 %; Immature Granulocytes Absolute 0.45 #; Lymphocytes # 1.3 10*3/uL (1.4-4.0); Mean Corpuscular HGB Conc 34.3 GM/DL (32-36); Mean Corpuscular Volume 83.8 FL (87-102); Mean Platelet Volume 9.2 FL (9.6-12.0); Monocytes % 9.1 % (1.7-12.7); Neutrophils % 79.6 % (38.7-73.9); Platelet Count 396 T/CUMM (130-400); Red Blood Count 3.58 MC/CUMM (3.8-5.5); Red Cell Distribution Width 13.9 % (9.3-17.3)
[2020-12-25 05:42] LABS: Band Neutrophils 4 % (0-10); Hypochromasia 1+; Lymphocytes 10 % (20-55); Segmented Neutrophils 80 % (50-85); Total Cells Counted 100
[2020-12-25 05:43] LABS: Microcytosis 1+
[2020-12-25 05:44] LABS: Platelet Estimate Normal
[2020-12-25 06:02] LABS: Albumin 1.2 G/DL (3.4-5.0); Bilirubin,Total 0.9 MG/DL (0.2-1.0); Calcium 7.9 MG/DL (8.5-10.1); Osmolality,Calculated 272.8 MOS/KG (273-304); Potassium 3.7 MMOL/L (3.5-5.1); Thyroid Stimulating Hormone 0.789 uIU/ml (0.358-3.74)
[2020-12-25] MEDS: FAMOTIDINE 20 MG/2 ML VIAL IV SCH ×2 (08:30→21:50)
[2020-12-25] MEDS: LINEZOLID INJ 600 MG/300 ML PREMIX IV SCH ×2 (08:35→22:00)
[2020-12-25] MEDS: MORPHINE 4 MG/1 ML VIAL IV PRN (08:43)
[2020-12-25] MEDS: MEROPENEM 500 MG in SODIUM CHLORIDE 0.9% 100 ML IV SCH ×3 (09:53→23:20)
[2020-12-25] MEDS: DIAZEPAM 5 MG TABLET PO SCH ×2 (12:03→17:40)
[2020-12-25] MEDS: ACETAMINOPHEN 325 MG TABLET PO PRN (12:04)
[2020-12-25] MEDS: INSULIN GLARGINE 100 UNIT/ML SUBCUT SCH ×2 (17:40→18:54)
[2020-12-25] MEDS: SODIUM HYPOCHLORITE 0.25% IRRIG 473 ML BOTTLE TOP SCH (17:40)
[2020-12-25] MEDS: SKIN HEALING OINT (AQUAPHOR) 50 GM TUBE TOP PRN (17:40)
[2020-12-26] MEDS: INSULIN LISPRO 100 UNIT/ML SUBCUT SCH ×6 (00:57→21:46)
[2020-12-26] MEDS: DIAZEPAM 5 MG TABLET PO SCH ×4 (00:58→18:16)
[2020-12-26] MEDS: ACETAMINOPHEN 325 MG TABLET PO PRN ×2 (03:30→08:28)
[2020-12-26 04:30] LABS: Basophils % 0.2 % (0.0-0.8); Eosinophils # 0.2 10*3/uL (0.0-0.87); Eosinophils % 1.1 % (0.00-10.9); Hematocrit 30.4 VOL% (42.0-52.0); Hemoglobin 9.9 GM/DL (14.0-18.0); Immature Granulocytes % 3.8 %; Immature Granulocytes Absolute 0.67 #; Lymphocytes # 1.7 10*3/uL (1.4-4.0); Lymphocytes % 9.5 % (21.2-54.2); Mean Corpuscular HGB Conc 32.6 GM/DL (32-36); Mean Corpuscular Volume 85.6 FL (87-102); Mean Platelet Volume 9.3 FL (9.6-12.0); Monocytes % 7.2 % (1.7-12.7); NRBC # 0.02 10*3/uL; Neutrophils % 78.2 % (38.7-73.9); Platelet Count 429 T/CUMM (130-400); Red Blood Count 3.55 MC/CUMM (3.8-5.5); Red Cell Distribution Width 14.1 % (9.3-17.3); White Blood Count 17.4 T/CUMM (4-12)
[2020-12-26 04:55] LABS: Band Neutrophils 6 % (0-10); Hypochromasia 1+; Lymphocytes 4 % (20-55); Microcytosis 1+; Segmented Neutrophils 82 % (50-85); Total Cells Counted 100
[2020-12-26 04:56] LABS: Platelet Estimate Increased
[2020-12-26 05:02] LABS: Calcium 6.6 MG/DL (8.5-10.1); Osmolality,Calculated 270.4 MOS/KG (273-304); Potassium 2.9 MMOL/L (3.5-5.1)
[2020-12-26] MEDS: MEROPENEM 500 MG in SODIUM CHLORIDE 0.9% 100 ML IV SCH ×4 (05:44→22:21)
[2020-12-26] MEDS: SODIUM CHLORIDE 0.9% 1,000 ML IV SCH ×4 (06:23→15:25)
[2020-12-26] MEDS ORDERED: POTASSIUM CHLORIDE RIDER 10 MEQ/100 ML PREMIX IV PRN (06:53)
[2020-12-26] MEDS: POTASSIUM CHLORIDE RIDER 10 MEQ/100 ML PREMIX IV PRN ×4 (08:28→14:22)
[2020-12-26] MEDS: INSULIN GLARGINE 100 UNIT/ML SUBCUT SCH (09:33)
[2020-12-26] MEDS: LINEZOLID INJ 600 MG/300 ML PREMIX IV SCH ×2 (09:34→22:15)
[2020-12-26] MEDS: FAMOTIDINE 20 MG/2 ML VIAL IV SCH ×2 (09:34→21:47)
[2020-12-26] MEDS: POTASSIUM CHLORIDE 20 MEQ TABLET PO SCH ×4 (09:35→21:46)
[2020-12-26] MEDS: SODIUM HYPOCHLORITE 0.25% IRRIG 473 ML BOTTLE TOP SCH (12:32)
[2020-12-26] MEDS: SKIN HEALING OINT (AQUAPHOR) 50 GM TUBE TOP PRN (12:32)
[2020-12-27] MEDS: INSULIN LISPRO 100 UNIT/ML SUBCUT SCH ×6 (01:08→21:16)
[2020-12-27] MEDS: DIAZEPAM 5 MG TABLET PO SCH ×4 (01:09→18:26)
[2020-12-27] MEDS: SODIUM CHLORIDE 0.9% 1,000 ML IV SCH ×3 (04:36→11:34)
[2020-12-27 04:51] LABS: Basophils % 0.2 % (0.0-0.8); Eosinophils # 0.1 10*3/uL (0.0-0.87); Eosinophils % 0.5 % (0.00-10.9); Hematocrit 29.4 VOL% (42.0-52.0); Hemoglobin 9.5 GM/DL (14.0-18.0); Immature Granulocytes % 2.9 %; Immature Granulocytes Absolute 0.51 #; Lymphocytes # 1.4 10*3/uL (1.4-4.0); Lymphocytes % 7.9 % (21.2-54.2); Mean Corpuscular HGB Conc 32.3 GM/DL (32-36); Mean Corpuscular Volume 86.5 FL (87-102); Monocytes % 4.8 % (1.7-12.7); Neutrophils % 83.7 % (38.7-73.9); Platelet Count 498 T/CUMM (130-400); Red Cell Distribution Width 14.6 % (9.3-17.3); White Blood Count 17.3 T/CUMM (4-12)
[2020-12-27 05:07] LABS: Calcium 7.7 MG/DL (8.5-10.1); Osmolality,Calculated 269.4 MOS/KG (273-304); Potassium 4.3 MMOL/L (3.5-5.1)
[2020-12-27] MEDS: MEROPENEM 500 MG in SODIUM CHLORIDE 0.9% 100 ML IV SCH ×2 (05:39→11:32)
[2020-12-27 05:54] LABS: Anisocytosis Slight; Band Neutrophils 26 % (0-10); Lymphocytes 6 % (20-55); Platelet Estimate Normal; Segmented Neutrophils 63 % (50-85); Smudge Cells Few; Total Cells Counted 100
[2020-12-27 05:55] LABS: Macrocytosis Slight
[2020-12-27] MEDS: INSULIN GLARGINE 100 UNIT/ML SUBCUT SCH (09:11)
[2020-12-27] MEDS: FAMOTIDINE 20 MG/2 ML VIAL IV SCH ×2 (09:16→21:16)
[2020-12-27] MEDS: LINEZOLID INJ 600 MG/300 ML PREMIX IV SCH (09:21)
[2020-12-27] MEDS ORDERED: MAGNESIUM SULF RIDER 2 GM/50 ML PREMIX IV ONE (13:00)
[2020-12-27] MEDS: SODIUM HYPOCHLORITE 0.25% IRRIG 473 ML BOTTLE TOP SCH (14:02)
[2020-12-27] MEDS: VANCOMYCIN INJ 1,500 MG in SODIUM CHLORIDE 0.9% 500 ML IV SCH (18:25)
[2020-12-27] MEDS: cefTRIAXone 2,000 MG in SODIUM CHLORIDE 0.9% 100 ML IV SCH (21:16)
[2020-12-27] MEDS: SIMVASTATIN 10 MG TABLET PO SCH (21:17)
[2020-12-27] MEDS: DILTIAZEM CD 120 MG CAPSULE PO SCH (21:17)
[2020-12-27] MEDS: GABAPENTIN 300 MG CAPSULE PO SCH (21:17)
[2020-12-28] MEDS: DIAZEPAM 5 MG TABLET PO SCH ×5 (00:37→23:44)
[2020-12-28] MEDS: SODIUM CHLORIDE 0.9% 1,000 ML IV SCH ×2 (00:39→08:40)
[2020-12-28] MEDS: INSULIN LISPRO 100 UNIT/ML SUBCUT SCH ×7 (02:45→23:47)
[2020-12-28] MEDS: VANCOMYCIN INJ 1,500 MG in SODIUM CHLORIDE 0.9% 500 ML IV SCH (02:46)
[2020-12-28 07:25] LABS: Basophils % 0.3 % (0.0-0.8); Eosinophils # 0.2 10*3/uL (0.0-0.87); Eosinophils % 1.2 % (0.00-10.9); Hematocrit 27.8 VOL% (42.0-52.0); Hemoglobin 9.3 GM/DL (14.0-18.0); Immature Granulocytes % 2.5 %; Immature Granulocytes Absolute 0.34 #; Lymphocytes # 1.8 10*3/uL (1.4-4.0); Lymphocytes % 13.1 % (21.2-54.2); Mean Corpuscular HGB Conc 33.5 GM/DL (32-36); Mean Corpuscular Volume 86.6 FL (87-102); Mean Platelet Volume 8.7 FL (9.6-12.0); Monocytes % 6.2 % (1.7-12.7); Neutrophils % 76.7 % (38.7-73.9); Platelet Count 498 T/CUMM (130-400); Red Blood Count 3.21 MC/CUMM (3.8-5.5); Red Cell Distribution Width 14.7 % (9.3-17.3); White Blood Count 13.8 T/CUMM (4-12)
[2020-12-28 07:48] LABS: Calcium 7.6 MG/DL (8.5-10.1); Osmolality,Calculated 267.2 MOS/KG (273-304); Potassium 3.8 MMOL/L (3.5-5.1)
[2020-12-28] MEDS: FAMOTIDINE 20 MG/2 ML VIAL IV SCH ×2 (08:39→20:08)
[2020-12-28] MEDS: SODIUM HYPOCHLORITE 0.25% IRRIG 473 ML BOTTLE TOP SCH (08:39)
[2020-12-28] MEDS: INSULIN GLARGINE 100 UNIT/ML SUBCUT SCH (08:39)
[2020-12-28] MEDS: GABAPENTIN 300 MG CAPSULE PO SCH ×2 (08:39→20:09)
[2020-12-28] MEDS ORDERED: DEXTROSE 50% 25 GM/50 ML VIAL IV PRN (09:42)
[2020-12-28] MEDS ORDERED: GLUCAGON 1 MG VIAL IM PRN (09:42)
[2020-12-28] MEDS: cefTRIAXone 2,000 MG in SODIUM CHLORIDE 0.9% 100 ML IV SCH (20:09)
[2020-12-28] MEDS: DILTIAZEM CD 120 MG CAPSULE PO SCH (20:09)
[2020-12-28] MEDS: SIMVASTATIN 10 MG TABLET PO SCH (20:10)
[2020-12-29] MEDS: INSULIN LISPRO 100 UNIT/ML SUBCUT SCH ×5 (03:33→21:05)
[2020-12-29 04:38] LABS: Basophils % 0.2 % (0.0-0.8); Eosinophils # 0.2 10*3/uL (0.0-0.87); Eosinophils % 1.5 % (0.00-10.9); Immature Granulocytes % 2.5 %; Immature Granulocytes Absolute 0.34 #; Lymphocytes % 14.4 % (21.2-54.2); Mean Corpuscular HGB Conc 32.1 GM/DL (32-36); Mean Corpuscular Volume 87.5 FL (87-102); Mean Platelet Volume 8.5 FL (9.6-12.0); Neutrophils % 74.4 % (38.7-73.9); Platelet Count 510 T/CUMM (130-400); Red Cell Distribution Width 14.6 % (9.3-17.3); White Blood Count 13.6 T/CUMM (4-12)
[2020-12-29 04:56] LABS: Calcium 7.4 MG/DL (8.5-10.1); Osmolality,Calculated 257.9 MOS/KG (273-304); Potassium 3.9 MMOL/L (3.5-5.1)
[2020-12-29] MEDS: DIAZEPAM 5 MG TABLET PO SCH ×3 (05:21→17:36)
[2020-12-29] MEDS ORDERED: MAGNESIUM SULF RIDER 2 GM/50 ML PREMIX IV PRN (08:10)
[2020-12-29] MEDS ORDERED: MAGNESIUM SULF RIDER 4 GM/100 ML PREMIX IV PRN (08:10)
[2020-12-29] MEDS: SODIUM HYPOCHLORITE 0.25% IRRIG 473 ML BOTTLE TOP SCH (08:30)
[2020-12-29] MEDS: INSULIN GLARGINE 100 UNIT/ML SUBCUT SCH (08:58)
[2020-12-29] MEDS: GABAPENTIN 300 MG CAPSULE PO SCH ×2 (08:59→21:05)
[2020-12-29] MEDS: FAMOTIDINE 20 MG/2 ML VIAL IV SCH ×2 (09:23→21:05)
[2020-12-29] MEDS: MORPHINE 4 MG/1 ML VIAL IV PRN (18:03)
[2020-12-29] MEDS: cefTRIAXone 2,000 MG in SODIUM CHLORIDE 0.9% 100 ML IV SCH (20:09)
[2020-12-29] MEDS: SIMVASTATIN 10 MG TABLET PO SCH (21:05)
[2020-12-29] MEDS: DILTIAZEM CD 120 MG CAPSULE PO SCH (21:06)
[2020-12-30] MEDS: INSULIN LISPRO 100 UNIT/ML SUBCUT SCH ×6 (00:20→21:42)
[2020-12-30] MEDS: DIAZEPAM 5 MG TABLET PO SCH ×3 (00:20→12:16)
[2020-12-30 05:16] LABS: Basophils % 0.2 % (0.0-0.8); Eosinophils # 0.2 10*3/uL (0.0-0.87); Eosinophils % 1.6 % (0.00-10.9); Hemoglobin 8.6 GM/DL (14.0-18.0); Immature Granulocytes % 3.2 %; Immature Granulocytes Absolute 0.39 #; Lymphocytes % 16.1 % (21.2-54.2); Mean Corpuscular HGB Conc 33.1 GM/DL (32-36); Mean Corpuscular Volume 86.1 FL (87-102); Mean Platelet Volume 8.3 FL (9.6-12.0); Monocytes % 6.3 % (1.7-12.7); Neutrophils % 72.6 % (38.7-73.9); Platelet Count 480 T/CUMM (130-400); Red Blood Count 3.02 MC/CUMM (3.8-5.5); Red Cell Distribution Width 14.3 % (9.3-17.3); White Blood Count 12.2 T/CUMM (4-12)
[2020-12-30 05:39] LABS: Calcium 7.5 MG/DL (8.5-10.1); Osmolality,Calculated 262.8 MOS/KG (273-304); Potassium 3.8 MMOL/L (3.5-5.1)
[2020-12-30] MEDS: GABAPENTIN 300 MG CAPSULE PO SCH ×2 (09:08→21:41)
[2020-12-30] MEDS: FAMOTIDINE 20 MG/2 ML VIAL IV SCH ×2 (09:09→21:43)
[2020-12-30] MEDS: INSULIN GLARGINE 100 UNIT/ML SUBCUT SCH (09:09)
[2020-12-30] MEDS: SODIUM HYPOCHLORITE 0.25% IRRIG 473 ML BOTTLE TOP SCH (09:10)
[2020-12-30] MEDS: DIAZEPAM 2 MG TABLET PO SCH ×2 (16:04→21:42)
[2020-12-30] MEDS: SIMVASTATIN 10 MG TABLET PO SCH (21:41)
[2020-12-30] MEDS: DILTIAZEM CD 180 MG CAPSULE PO SCH (21:42)
[2020-12-30] MEDS: cefTRIAXone 2,000 MG in SODIUM CHLORIDE 0.9% 100 ML IV SCH (21:42)
[2020-12-30] MEDS: ACETAMINOPHEN 325 MG TABLET PO PRN (22:33)
[2020-12-31] MEDS: INSULIN LISPRO 100 UNIT/ML SUBCUT SCH ×6 (00:35→20:51)
[2020-12-31 05:48] LABS: Basophils % 0.3 % (0.0-0.8); Eosinophils # 0.2 10*3/uL (0.0-0.87); Hemoglobin 8.5 GM/DL (14.0-18.0); Immature Granulocytes % 2.4 %; Immature Granulocytes Absolute 0.25 #; Lymphocytes # 1.7 10*3/uL (1.4-4.0); Lymphocytes % 16.9 % (21.2-54.2); Mean Corpuscular HGB Conc 32.7 GM/DL (32-36); Mean Corpuscular Volume 87.2 FL (87-102); Mean Platelet Volume 8.3 FL (9.6-12.0); Monocytes % 6.8 % (1.7-12.7); Neutrophils % 71.6 % (38.7-73.9); Platelet Count 491 T/CUMM (130-400); Red Blood Count 2.98 MC/CUMM (3.8-5.5); Red Cell Distribution Width 14.2 % (9.3-17.3); White Blood Count 10.3 T/CUMM (4-12)
[2020-12-31 06:14] LABS: Calcium 7.5 MG/DL (8.5-10.1); Osmolality,Calculated 266.5 MOS/KG (273-304); Potassium 3.9 MMOL/L (3.5-5.1)
[2020-12-31 06:19] LABS: % Iron Saturation 10.9 % (18-50); Ferritin 399.9 ng/ml (26-388)
[2020-12-31] MEDS: FAMOTIDINE 20 MG/2 ML VIAL IV SCH ×2 (08:33→20:51)
[2020-12-31] MEDS: GABAPENTIN 300 MG CAPSULE PO SCH ×2 (08:33→20:51)
[2020-12-31] MEDS: DIAZEPAM 2 MG TABLET PO SCH ×3 (08:33→20:51)
[2020-12-31] MEDS: INSULIN GLARGINE 100 UNIT/ML SUBCUT SCH (08:34)
[2020-12-31] MEDS: SODIUM HYPOCHLORITE 0.25% IRRIG 473 ML BOTTLE TOP SCH (08:34)
[2020-12-31] MEDS: FERROUS SULFATE 325 MG TABLET PO SCH (11:36)
[2020-12-31] MEDS: SKIN HEALING OINT (AQUAPHOR) 50 GM TUBE TOP PRN (11:45)
[2020-12-31] MEDS: ACETAMINOPHEN 325 MG TABLET PO PRN (11:47)
[2020-12-31] MEDS: cefTRIAXone 2,000 MG in SODIUM CHLORIDE 0.9% 100 ML IV SCH (20:50)
[2020-12-31] MEDS: SIMVASTATIN 10 MG TABLET PO SCH (20:51)
[2020-12-31] MEDS: DILTIAZEM CD 180 MG CAPSULE PO SCH (20:51)
[2021-01-01] MEDS: INSULIN LISPRO 100 UNIT/ML SUBCUT SCH ×5 (01:06→15:10)
[2021-01-01 04:51] LABS: Basophils % 0.4 % (0.0-0.8); Eosinophils # 0.2 10*3/uL (0.0-0.87); Eosinophils % 1.7 % (0.00-10.9); Hematocrit 27.3 VOL% (42.0-52.0); Hemoglobin 8.9 GM/DL (14.0-18.0); Immature Granulocytes % 1.2 %; Immature Granulocytes Absolute 0.13 #; Lymphocytes # 1.7 10*3/uL (1.4-4.0); Lymphocytes % 15.8 % (21.2-54.2); Mean Corpuscular HGB Conc 32.6 GM/DL (32-36); Mean Corpuscular Volume 87.2 FL (87-102); Mean Platelet Volume 8.1 FL (9.6-12.0); Monocytes % 4.9 % (1.7-12.7); Platelet Count 544 T/CUMM (130-400); Red Blood Count 3.13 MC/CUMM (3.8-5.5); White Blood Count 10.6 T/CUMM (4-12)
[2021-01-01 05:23] LABS: Calcium 7.6 MG/DL (8.5-10.1); Osmolality,Calculated 269.2 MOS/KG (273-304); Potassium 4.2 MMOL/L (3.5-5.1)
[2021-01-01] MEDS: DIAZEPAM 2 MG TABLET PO SCH ×2 (08:00→15:09)
[2021-01-01] MEDS: GABAPENTIN 300 MG CAPSULE PO SCH (08:00)
[2021-01-01] MEDS: FERROUS SULFATE 325 MG TABLET PO SCH (08:00)
[2021-01-01] MEDS: INSULIN GLARGINE 100 UNIT/ML SUBCUT SCH (08:01)
[2021-01-01] MEDS: FAMOTIDINE 20 MG/2 ML VIAL IV SCH (08:02)
[2021-01-01] MEDS: SODIUM HYPOCHLORITE 0.25% IRRIG 473 ML BOTTLE TOP SCH (08:02)
[2021-01-01] MEDS: SKIN HEALING OINT (AQUAPHOR) 50 GM TUBE TOP PRN (10:53)
[2021-01-01 11:18] VITALS: BP 116/79
== END 2021-01-01 16:41 | disposition home or self-care (01) | DRG 564 ==
LOC: EDUNIT# → EDBD → N.ED 15:14 → SUATTDRO 16:50 → N.EDINP 16:50 → N.ICU 17:26 → N.3E 12-26 16:21
PROVIDERS: ADMIT Internal Medicine; ATTEND Internal Medicine

== ENCOUNTER 2021-01-02 18:59 | Inpatient (IN) ==
[2021-01-02] MEDS ORDERED: SODIUM CHLORIDE 0.9% 1,000 ML IV STA (19:45)
[2021-01-02] MEDS ORDERED: ONDANSETRON 4 MG/2 ML VIAL IV PRN (20:53)
[2021-01-02] MEDS ORDERED: GLUCAGON 1 MG VIAL IM PRN (20:53)
[2021-01-02] MEDS ORDERED: DEXTROSE 50% 25 GM/50 ML VIAL IV PRN ×2 (20:53)
[2021-01-02] MEDS ORDERED: ACETAMINOPHEN 325 MG TABLET PO PRN (20:53)
[2021-01-02] MEDS: INSULIN REGULAR 100 UNIT/ML SUBCUT SCH (22:22)
[2021-01-02] MEDS ORDERED: SKIN HEALING OINT (AQUAPHOR) 50 GM TUBE TOP PRN (22:40)
[2021-01-02] MEDS: SODIUM CHLORIDE 0.9% 1,000 ML IV SCH (23:17)
[2021-01-03 06:43] LABS: Basophils % 0.4 % (0.0-0.8); Eosinophils # 0.2 10*3/uL (0.0-0.87); Hematocrit 27.1 VOL% (42.0-52.0); Hemoglobin 8.3 GM/DL (14.0-18.0); Immature Granulocytes % 0.7 %; Immature Granulocytes Absolute 0.06 #; Lymphocytes % 21.3 % (21.2-54.2); Mean Corpuscular HGB Conc 30.6 GM/DL (32-36); Mean Platelet Volume 8.1 FL (9.6-12.0); Monocytes % 5.2 % (1.7-12.7); Neutrophils % 70.4 % (38.7-73.9); Platelet Count 544 T/CUMM (130-400); Red Blood Count 3.01 MC/CUMM (3.8-5.5); Red Cell Distribution Width 13.6 % (9.3-17.3); White Blood Count 9.2 T/CUMM (4-12)
[2021-01-03 07:16] LABS: Albumin 1.2 G/DL (3.4-5.0); Bilirubin,Total 0.8 MG/DL (0.2-1.0); Calcium 7.7 MG/DL (8.5-10.1); Osmolality,Calculated 274.8 MOS/KG (273-304); Potassium 4.1 MMOL/L (3.5-5.1)
[2021-01-03] MEDS ORDERED: PANTOPRAZOLE 40 MG TABLET PO SCH (09:00)
[2021-01-03] MEDS: INSULIN REGULAR 100 UNIT/ML SUBCUT SCH ×4 (09:35→21:08)
[2021-01-03] MEDS: FERROUS SULFATE 325 MG TABLET PO SCH (09:36)
[2021-01-03] MEDS: SODIUM HYPOCHLORITE 0.25% IRRIG 473 ML BOTTLE TOP SCH (09:36)
[2021-01-03] MEDS: GABAPENTIN 300 MG CAPSULE PO SCH ×2 (09:36→21:08)
[2021-01-03] MEDS: SODIUM CHLORIDE 0.9% 1,000 ML IV SCH ×2 (09:36→21:14)
[2021-01-03] MEDS: cefTRIAXone 1,000 MG in SODIUM CHLORIDE 0.9% 100 ML IV SCH (11:34)
[2021-01-03 12:22] LABS: Hemoglobin 8.5 GM/DL (14.0-18.0)
[2021-01-03] MEDS: DILTIAZEM CD 180 MG CAPSULE PO SCH (21:09)
[2021-01-03] MEDS: SIMVASTATIN 10 MG TABLET PO SCH (21:09)
[2021-01-04] MEDS: SODIUM CHLORIDE 0.9% 1,000 ML IV SCH ×2 (05:33→08:36)
[2021-01-04 06:25] LABS: Basophils # 0.1 10*3/uL (0.0-0.2); Basophils % 0.7 % (0.0-0.8); Eosinophils # 0.2 10*3/uL (0.0-0.87); Immature Granulocytes % 0.7 %; Immature Granulocytes Absolute 0.06 #; Lymphocytes # 2.2 10*3/uL (1.4-4.0); Lymphocytes % 25.4 % (21.2-54.2); Mean Corpuscular HGB Conc 30.8 GM/DL (32-36); Mean Corpuscular Volume 90.6 FL (87-102); Monocytes % 4.5 % (1.7-12.7); Neutrophils % 66.7 % (38.7-73.9); Platelet Count 510 T/CUMM (130-400); Red Blood Count 2.87 MC/CUMM (3.8-5.5); Red Cell Distribution Width 13.3 % (9.3-17.3); White Blood Count 8.8 T/CUMM (4-12)
[2021-01-04 06:41] LABS: Calcium 7.9 MG/DL (8.5-10.1); Osmolality,Calculated 274.7 MOS/KG (273-304); Potassium 3.9 MMOL/L (3.5-5.1)
[2021-01-04 06:51] LABS: Free T4 (Free Thyroxine) 1.38 NG/DL (0.76-1.46); Thyroid Stimulating Hormone 3.07 uIU/ml (0.358-3.74)
[2021-01-04] MEDS: INSULIN REGULAR 100 UNIT/ML SUBCUT SCH ×4 (08:21→21:07)
[2021-01-04] MEDS: GABAPENTIN 300 MG CAPSULE PO SCH ×2 (08:35→20:19)
[2021-01-04] MEDS: SODIUM HYPOCHLORITE 0.25% IRRIG 473 ML BOTTLE TOP SCH (08:36)
[2021-01-04] MEDS: FERROUS SULFATE 325 MG TABLET PO SCH (08:36)
[2021-01-04 09:16] LABS: Platelet Estimate Increased
[2021-01-04 09:17] LABS: Anisocytosis 1+; Macrocytosis Slight
[2021-01-04] MEDS ORDERED: ERGOCALCIFEROL 50,000 UNIT CAPSULE PO SCH (11:00)
[2021-01-04] MEDS ORDERED: VANCOMYCIN INJ 2,250 MG in SODIUM CHLORIDE 0.9% 500 ML IV ONE (12:00)
[2021-01-04] MEDS: cefTRIAXone 1,000 MG in SODIUM CHLORIDE 0.9% 100 ML IV SCH (12:09)
[2021-01-04] MEDS: MICAFUNGIN 100 MG in SODIUM CHLORIDE 0.9% 100 ML IV SCH (12:57)
[2021-01-04 17:49] LABS: HIV Antigen/Antibody Result Nonreactive (Nonreactive); Hepatitis B Core IgM Quant < 0.05 Index; Hepatitis B Surface Ag Quant < 0.10 Index; Hepatitis B Surface Ag Result Non-Reactive (NonReactive); Hepatitis C Virus Ab Quant 0.15 Index; Hepatitis C Virus Ab Result Non-Reactive (NonReactive)
[2021-01-04] MEDS: DILTIAZEM CD 180 MG CAPSULE PO SCH (20:20)
[2021-01-04] MEDS: SIMVASTATIN 10 MG TABLET PO SCH (20:20)
[2021-01-05] MEDS: VANCOMYCIN INJ 1,500 MG in SODIUM CHLORIDE 0.9% 500 ML IV SCH ×2 (00:19→13:23)
[2021-01-05] MEDS: SODIUM CHLORIDE 0.9% 1,000 ML IV SCH (00:20)
[2021-01-05 05:54] LABS: Basophils # 0.1 10*3/uL (0.0-0.2); Basophils % 0.6 % (0.0-0.8); Eosinophils # 0.2 10*3/uL (0.0-0.87); Eosinophils % 1.9 % (0.00-10.9); Hematocrit 26.4 VOL% (42.0-52.0); Hemoglobin 8.3 GM/DL (14.0-18.0); Immature Granulocytes % 0.4 %; Immature Granulocytes Absolute 0.04 #; Lymphocytes # 1.8 10*3/uL (1.4-4.0); Lymphocytes % 18.9 % (21.2-54.2); Mean Corpuscular HGB Conc 31.4 GM/DL (32-36); Mean Corpuscular Volume 88.9 FL (87-102); Monocytes % 4.1 % (1.7-12.7); Neutrophils % 74.1 % (38.7-73.9); Platelet Count 477 T/CUMM (130-400); Red Blood Count 2.97 MC/CUMM (3.8-5.5); Red Cell Distribution Width 13.3 % (9.3-17.3); White Blood Count 9.3 T/CUMM (4-12)
[2021-01-05 06:24] LABS: Alanine Aminotransferase < 9 U/L (16-61); Albumin 1.2 G/DL (3.4-5.0); Alkaline Phosphatase 179 U/L (45-117); Aspartate Amino Transferase 14 U/L (0-37); Blood Urea Nitrogen 7 MG/DL (7-18); Calcium 7.7 MG/DL (8.5-10.1); Carbon Dioxide 22 MMOL/L (21-32); Estimated Glom Filtration Rate 120 ML/MIN; Glucose 100 MG/DL (74-106); Osmolality,Calculated 270.8 MOS/KG (273-304); Potassium 4.1 MMOL/L (3.5-5.1); Sodium 137 MMOL/L (136-145); Total Protein 7.2 G/DL (6.4-8.2)
[2021-01-05] MEDS: INSULIN REGULAR 100 UNIT/ML SUBCUT SCH ×4 (08:00→21:59)
[2021-01-05] MEDS: FERROUS SULFATE 325 MG TABLET PO SCH (08:25)
[2021-01-05] MEDS: GABAPENTIN 300 MG CAPSULE PO SCH ×2 (08:25→21:28)
[2021-01-05] MEDS ORDERED: MEPERIDINE 25 MG/1 ML VIAL IV PRN (08:39)
[2021-01-05] MEDS ORDERED: diphenhydrAMINE 50 MG/1 ML VIAL IV PRN (08:39)
[2021-01-05] MEDS ORDERED: ONDANSETRON 4 MG/2 ML VIAL IV PRN (08:39)
[2021-01-05] MEDS ORDERED: HYDROmorphone 2 MG/1 ML VIAL IV PRN (08:39)
[2021-01-05] MEDS ORDERED: PROMETHAZINE INJ 25 MG in SODIUM CHLORIDE 0.9% 50 ML IV PRN (08:39)
[2021-01-05] MEDS ORDERED: PHENYLEPHRINE 1 MG/10 ML SYRINGE IV ONE (10:01)
[2021-01-05] MEDS ORDERED: LIDOCAINE 2% 5 ML VIAL ONE (10:02)
[2021-01-05] MEDS ORDERED: SEVOFLURANE 1 UNIT/15 MINUTE INH ONE (10:02)
[2021-01-05] MEDS ORDERED: propofoL 200 MG/20 ML VIAL IV ONE (10:02)
[2021-01-05] MEDS ORDERED: ETOMIDATE 40 MG/20 ML VIAL IV ONE (10:02)
[2021-01-05] MEDS ORDERED: ONDANSETRON 4 MG/2 ML VIAL ONE (10:02)
[2021-01-05] MEDS ORDERED: DEXTROSE 50% 25 GM/50 ML VIAL IV PRN (10:05)
[2021-01-05] MEDS: SODIUM HYPOCHLORITE 0.25% IRRIG 473 ML BOTTLE TOP SCH (11:02)
[2021-01-05] MEDS: MICAFUNGIN 100 MG in SODIUM CHLORIDE 0.9% 100 ML IV SCH (11:02)
[2021-01-05] MEDS: cefTRIAXone 1,000 MG in SODIUM CHLORIDE 0.9% 100 ML IV SCH (12:13)
[2021-01-05] MEDS: SIMVASTATIN 10 MG TABLET PO SCH (21:29)
[2021-01-05] MEDS: DILTIAZEM CD 180 MG CAPSULE PO SCH (21:29)
[2021-01-06] MEDS: VANCOMYCIN INJ 1,500 MG in SODIUM CHLORIDE 0.9% 500 ML IV SCH ×2 (00:30→12:39)
[2021-01-06] MEDS: SODIUM CHLORIDE 0.9% 1,000 ML IV SCH ×2 (00:31→11:30)
[2021-01-06 06:07] LABS: Basophils % 0.4 % (0.0-0.8); Eosinophils # 0.2 10*3/uL (0.0-0.87); Eosinophils % 2.5 % (0.00-10.9); Hematocrit 26.5 VOL% (42.0-52.0); Hemoglobin 8.4 GM/DL (14.0-18.0); Immature Granulocytes % 0.6 %; Immature Granulocytes Absolute 0.05 #; Lymphocytes # 1.7 10*3/uL (1.4-4.0); Lymphocytes % 19.9 % (21.2-54.2); Mean Corpuscular HGB Conc 31.7 GM/DL (32-36); Mean Corpuscular Volume 89.2 FL (87-102); Mean Platelet Volume 7.9 FL (9.6-12.0); Monocytes % 4.7 % (1.7-12.7); Neutrophils % 71.9 % (38.7-73.9); Platelet Count 441 T/CUMM (130-400); Red Blood Count 2.97 MC/CUMM (3.8-5.5); Red Cell Distribution Width 13.2 % (9.3-17.3); White Blood Count 8.4 T/CUMM (4-12)
[2021-01-06 06:29] LABS: Calcium 7.9 MG/DL (8.5-10.1)
[2021-01-06] MEDS: FERROUS SULFATE 325 MG TABLET PO SCH (09:20)
[2021-01-06] MEDS: GABAPENTIN 300 MG CAPSULE PO SCH ×2 (09:21→20:13)
[2021-01-06] MEDS: INSULIN REGULAR 100 UNIT/ML SUBCUT SCH ×4 (09:21→20:14)
[2021-01-06] MEDS: SODIUM HYPOCHLORITE 0.25% IRRIG 473 ML BOTTLE TOP SCH (09:22)
[2021-01-06] MEDS: MICAFUNGIN 100 MG in SODIUM CHLORIDE 0.9% 100 ML IV SCH (12:11)
[2021-01-06] MEDS: cefTRIAXone 1,000 MG in SODIUM CHLORIDE 0.9% 100 ML IV SCH (13:19)
[2021-01-06] MEDS: SIMVASTATIN 10 MG TABLET PO SCH (20:13)
[2021-01-06] MEDS: DILTIAZEM CD 180 MG CAPSULE PO SCH (20:14)
[2021-01-07] MEDS: SODIUM CHLORIDE 0.9% 1,000 ML IV SCH (04:30)
[2021-01-07 05:40] LABS: Basophils # 0.1 10*3/uL (0.0-0.2); Basophils % 0.6 % (0.0-0.8); Eosinophils # 0.2 10*3/uL (0.0-0.87); Eosinophils % 2.2 % (0.00-10.9); Hematocrit 26.5 VOL% (42.0-52.0); Hemoglobin 8.3 GM/DL (14.0-18.0); Immature Granulocytes % 0.6 %; Immature Granulocytes Absolute 0.05 #; Lymphocytes # 1.6 10*3/uL (1.4-4.0); Lymphocytes % 18.1 % (21.2-54.2); Mean Corpuscular HGB Conc 31.3 GM/DL (32-36); Mean Corpuscular Volume 88.9 FL (87-102); Mean Platelet Volume 7.9 FL (9.6-12.0); Monocytes % 4.7 % (1.7-12.7); Neutrophils % 73.8 % (38.7-73.9); Platelet Count 466 T/CUMM (130-400); Red Blood Count 2.98 MC/CUMM (3.8-5.5); White Blood Count 8.7 T/CUMM (4-12)
[2021-01-07 06:10] LABS: Calcium 8.1 MG/DL (8.5-10.1); Osmolality,Calculated 269.2 MOS/KG (273-304); Potassium 3.8 MMOL/L (3.5-5.1)
[2021-01-07] MEDS ORDERED: MAGNESIUM SULF RIDER 2 GM/50 ML PREMIX IV ONE (07:45)
[2021-01-07] MEDS: GABAPENTIN 300 MG CAPSULE PO SCH ×2 (08:34→21:36)
[2021-01-07] MEDS: FERROUS SULFATE 325 MG TABLET PO SCH (08:34)
[2021-01-07] MEDS: SODIUM HYPOCHLORITE 0.25% IRRIG 473 ML BOTTLE TOP SCH (08:35)
[2021-01-07] MEDS: INSULIN REGULAR 100 UNIT/ML SUBCUT SCH ×4 (08:35→21:36)
[2021-01-07] MEDS: cefTRIAXone 1,000 MG in SODIUM CHLORIDE 0.9% 100 ML IV SCH (10:30)
[2021-01-07] MEDS: MICAFUNGIN 100 MG in SODIUM CHLORIDE 0.9% 100 ML IV SCH (10:31)
[2021-01-07] MEDS ORDERED: VANCOMYCIN INJ 1,500 MG in SODIUM CHLORIDE 0.9% 500 ML IV SCH (12:00)
[2021-01-07] MEDS: DILTIAZEM CD 180 MG CAPSULE PO SCH (21:36)
[2021-01-07] MEDS: SIMVASTATIN 10 MG TABLET PO SCH (21:36)
[2021-01-08 05:18] LABS: Basophils # 0.1 10*3/uL (0.0-0.2); Eosinophils # 0.2 10*3/uL (0.0-0.87); Eosinophils % 2.9 % (0.00-10.9); Hematocrit 27.3 VOL% (42.0-52.0); Hemoglobin 8.7 GM/DL (14.0-18.0); Immature Granulocytes % 0.4 %; Immature Granulocytes Absolute 0.03 #; Lymphocytes # 1.5 10*3/uL (1.4-4.0); Lymphocytes % 20.7 % (21.2-54.2); Mean Corpuscular HGB Conc 31.9 GM/DL (32-36); Mean Corpuscular Volume 87.2 FL (87-102); Monocytes % 5.4 % (1.7-12.7); Neutrophils % 69.6 % (38.7-73.9); Platelet Count 444 T/CUMM (130-400); Red Blood Count 3.13 MC/CUMM (3.8-5.5); Red Cell Distribution Width 13.1 % (9.3-17.3); White Blood Count 7.4 T/CUMM (4-12)
[2021-01-08 05:39] LABS: Osmolality,Calculated 272.8 MOS/KG (273-304); Potassium 3.7 MMOL/L (3.5-5.1)
[2021-01-08 07:03] LABS: Eosinophils 4 % (0-10); Hypochromasia 1+; Lymphocytes 21 % (20-55); Microcytosis 1+; Platelet Estimate Adequate; Segmented Neutrophils 69 % (50-85); Total Cells Counted 100
[2021-01-08] MEDS: INSULIN REGULAR 100 UNIT/ML SUBCUT SCH ×4 (08:33→20:52)
[2021-01-08] MEDS: FERROUS SULFATE 325 MG TABLET PO SCH (08:33)
[2021-01-08] MEDS: GABAPENTIN 300 MG CAPSULE PO SCH ×2 (08:34→20:52)
[2021-01-08] MEDS: MICAFUNGIN 100 MG in SODIUM CHLORIDE 0.9% 100 ML IV SCH (11:27)
[2021-01-08] MEDS: SODIUM CHLORIDE 0.9% 1,000 ML IV SCH (12:08)
[2021-01-08] MEDS: cefTRIAXone 1,000 MG in SODIUM CHLORIDE 0.9% 100 ML IV SCH (14:41)
[2021-01-08] MEDS: SODIUM HYPOCHLORITE 0.25% IRRIG 473 ML BOTTLE TOP SCH (17:28)
[2021-01-08] MEDS: SIMVASTATIN 10 MG TABLET PO SCH (20:52)
[2021-01-08] MEDS: SULFAMETHOX/TRIMETHOPRIM 800-160 MG TABLET PO SCH (20:52)
[2021-01-08] MEDS: DILTIAZEM CD 180 MG CAPSULE PO SCH (20:52)
[2021-01-09 05:15] LABS: Basophils # 0.1 10*3/uL (0.0-0.2); Eosinophils # 0.3 10*3/uL (0.0-0.87); Eosinophils % 4.3 % (0.00-10.9); Hematocrit 28.7 VOL% (42.0-52.0); Hemoglobin 9.1 GM/DL (14.0-18.0); Immature Granulocytes % 0.7 %; Immature Granulocytes Absolute 0.04 #; Lymphocytes # 1.2 10*3/uL (1.4-4.0); Lymphocytes % 19.9 % (21.2-54.2); Mean Corpuscular HGB Conc 31.7 GM/DL (32-36); Mean Corpuscular Volume 88.9 FL (87-102); Mean Platelet Volume 9.2 FL (9.6-12.0); Monocytes % 5.7 % (1.7-12.7); Neutrophils % 68.4 % (38.7-73.9); Platelet Count 359 T/CUMM (130-400); Red Blood Count 3.23 MC/CUMM (3.8-5.5); White Blood Count 5.8 T/CUMM (4-12)
[2021-01-09 05:44] LABS: Calcium 7.9 MG/DL (8.5-10.1); Osmolality,Calculated 268.1 MOS/KG (273-304)
[2021-01-09] MEDS: SULFAMETHOX/TRIMETHOPRIM 800-160 MG TABLET PO SCH (08:53)
[2021-01-09] MEDS: FERROUS SULFATE 325 MG TABLET PO SCH (08:53)
[2021-01-09] MEDS: GABAPENTIN 300 MG CAPSULE PO SCH (08:53)
[2021-01-09] MEDS: INSULIN REGULAR 100 UNIT/ML SUBCUT SCH ×2 (08:54→12:47)
[2021-01-09] MEDS ORDERED: cefTRIAXone 2,000 MG in SODIUM CHLORIDE 0.9% 100 ML IV SCH (11:00)
[2021-01-09 11:16] VITALS: BP 143/84
[2021-01-09] MEDS: SODIUM HYPOCHLORITE 0.25% IRRIG 473 ML BOTTLE TOP SCH (12:46)
[2021-01-09] MEDS: MICAFUNGIN 100 MG in SODIUM CHLORIDE 0.9% 100 ML IV SCH (12:46)
[2021-01-09] MEDS: SODIUM CHLORIDE 0.9% 1,000 ML IV SCH (12:47)
== END 2021-01-09 14:52 | disposition hospice, home (50) | DRG 854 ==
LOC: EDUNIT# → EDBD → N.EDINP 18:59 → N.ED 18:59 → SUATTDRO 20:53 → N.3E 22:17
PROVIDERS: ADMIT Internal Medicine Nephrology; ATTEND Internal Medicine